=== PATIENT | male | born 1965 | race Caucasian/White ===

== ENCOUNTER → 2024-02-13 08:39 | Outpatient (CLI) | payer OTHER, SELFPAY ==
--- NOTE | 2024-02-13 | DI.US.S_ITS ---
PROCEDURE: US PARACENTESIS INDICATIONS: alcoholic cirrhosis of liver with ascites TECHNIQUE: The indications, alternatives, benefits, risks, and complications of the procedure were explained to the patient. Written informed consent was obtained and placed in the chart. The abdomen and pelvis were examined sonographically, and an appropriate site was chosen for paracentesis. The skin was prepared and draped in the usual sterile fashion, and 1% lidocaine was infiltrated from the skin down through the peritoneal surface. A 19-gauge catheter-covered needle was then introduced into the peritoneal space, the catheter was advanced and the needle was withdrawn, and thereafter peritoneal fluid was withdrawn. The catheter was then removed and a dressing was applied. The fluid was discarded if the clinician did not order diagnostic testing of the fluid. COMPARISON: None. FINDINGS: Access site: Left lower quadrant Needle: One-Step centesis catheter with introducer needle. Fluid volume and description: 5 L, clear straw-colored Fluid sent for diagnostic testing: None Medications: 1% lidocaine for local anaesthesia. Complications: None. IMPRESSION: Successful ultrasound-guided paracentesis. Dictated by: Bekah Morales M.D. on 02/13/2024 at 17:14 Approved by: Bekah Morales M.D. on 02/13/2024 at 17:15
[2024-02-13 10:15] LABS: Add Manual Diff / Slide Review NO; Basophils Absolute Auto 0 /uL (0-100); Basophils Percent Auto 0.5 % (0-2); Eosinophils Absolute Auto 0 /uL (0-450); Eosinophils Percent Auto 0.1 % (2-4); Hematocrit 36.6 % (41-53); Hemoglobin 12.4 g/dL (13.5-17.5); Lymphocytes Absolute Auto 1200 /uL (1100-4500); Lymphocytes Percent Auto 12.1 % (25-40); Mean Corpuscular HGB Conc 33.8 % (30-36); Mean Corpuscular Hemoglobin 33.3 PG (26-34); Mean Corpuscular Volume 98.7 fL (80-100); Monocytes Absolute Auto 1500 /uL (0-900); Monocytes Percent Auto 14.9 % (3-14); Neutrophils Absolute Auto 7100 /uL (1500-7000); Neutrophils Percent Auto 72.4 % (50-75); Platelet Count 252 X10^3/uL (150-400); Red Blood Cell Count 3.71 X10^6/uL (4.5-5.9); Red Cell Distribution Width 15.5 % (11.6-14.8); White Blood Cell Count 9.8 X10^3/uL (4.5-11.0)
[2024-02-13 10:46] LABS: INR 1.6 (0.9-1.3); Prothrombin Time 18.1 SECONDS (9.4-12.5)
[2024-02-13 10:47] LABS: Albumin 3.4 g/dL (3.5-5.0); Alkaline Phosphatase 262 U/L (38-126); Aspartate Aminotransferase 67 IU/L (17-59); BUN Creatinine Ratio 14.4 (6-22); Bilirubin Total 2.7 mg/dL (0.2-1.3); Blood Urea Nitrogen 13 mg/dL (9-20); Carbon Dioxide 24 mmol/L (22-32); Chloride 91 mmol/L (98-107); Estimated Glomerular Filt Rate > 60 mL/min (>60); Globulin 3.3 g/dL (1.7-4.1); Glucose 107 mg/dL (80-110); HEMOLYSIS < 15 (0-50); Sodium 127 mmol/L (137-145); Total Protein 6.7 g/dL (6.3-8.2)
[2024-02-13 10:55] LABS: Alanine Aminotransferase 28 IU/L (<50)
== END ==
PROVIDERS: Referring Provider Transplant Surgery; Visit Provider Transplant Surgery
DX: K70.31 Alcoholic cirrhosis of liver with ascites (principal); K72.90 Hepatic failure, unspecified without coma
CPT/HCPCS: 49083; 80053; 85025; 85610

== ENCOUNTER → 2024-02-27 08:48 | Outpatient (CLI) | payer OTHER, SELFPAY ==
--- NOTE | 2024-02-27 08:50 | DI.US.S_ITS ---
PROCEDURE: US PARACENTESIS INDICATIONS: Alcoholic cirrhosis of liver with ascites TECHNIQUE: The indications, alternatives, benefits, risks, and complications of the procedure were explained to the patient. Written informed consent was obtained and placed in the chart. The abdomen and pelvis were examined sonographically, and an appropriate site was chosen for paracentesis. The skin was prepared and draped in the usual sterile fashion, and 1% lidocaine was infiltrated from the skin down through the peritoneal surface. A 19-gauge catheter-covered needle was then introduced into the peritoneal space, the catheter was advanced and the needle was withdrawn, and thereafter peritoneal fluid was withdrawn. The catheter was then removed and a dressing was applied. The fluid was discarded if the clinician did not order diagnostic testing of the fluid. COMPARISON: [facility], , PARACENTESIS, 02/13/2024, 9:35. FINDINGS: Access site: Right lower quadrant Needle: One-Step centesis catheter with introducer needle. Fluid volume and description: 5000 cc. Straw-colored. Fluid sent for diagnostic testing: None. Medications: 1% lidocaine for local anaesthesia. Complications: None. IMPRESSION: Successful ultrasound-guided therapeutic paracentesis. 5 L removed. Dictated by: Amilcar Irene M.D. on 02/27/2024 at 15:27 Approved by: Amilcar Irene M.D. on 02/27/2024 at 15:28
== END ==
PROVIDERS: Referring Provider Transplant Surgery; Visit Provider Transplant Surgery
DX: K70.31 Alcoholic cirrhosis of liver with ascites (principal)
CPT/HCPCS: 49083

== ENCOUNTER → 2024-03-05 11:23 | Outpatient (CLI) | payer OTHER, SELFPAY ==
--- NOTE | 2024-03-05 11:26 | DI.US.S_ITS ---
PROCEDURE: US PARACENTESIS INDICATIONS: Alcoholic cirrhosis of liver with ascites TECHNIQUE: The indications, alternatives, benefits, risks, and complications of the procedure were explained to the patient. Written informed consent was obtained and placed in the chart. The abdomen and pelvis were examined sonographically, and an appropriate site was chosen for paracentesis. The skin was prepared and draped in the usual sterile fashion, and 1% lidocaine was infiltrated from the skin down through the peritoneal surface. A 19-gauge catheter-covered needle was then introduced into the peritoneal space, the catheter was advanced and the needle was withdrawn, and thereafter peritoneal fluid was withdrawn. The catheter was then removed and a dressing was applied. The fluid was discarded if the clinician did not order diagnostic testing of the fluid. COMPARISON: [facility], PARACENTESIS, 02/27/2024, 10:13. FINDINGS: Access site: Right lower quadrant. Needle: One-Step centesis catheter with introducer needle. Fluid volume and description: 5 L of clear yellowish fluid. Fluid sent for diagnostic testing: None Medications: 1% lidocaine for local anaesthesia. Complications: None. IMPRESSION: Successful ultrasound-guided paracentesis. Dictated by: Alberto Coyle M.D. on 03/05/2024 at 17:28 Approved by: Alberto Coyle M.D. on 03/05/2024 at 17:29
[2024-03-05 14:07] LABS: INR 1.6 (0.9-1.3); Prothrombin Time 18.3 SECONDS (9.4-12.5)
== END ==
LOC: US 11:24
PROVIDERS: PCP Transplant Surgery; Referring Provider Transplant Surgery; Visit Provider Transplant Surgery
DX: K70.31 Alcoholic cirrhosis of liver with ascites (principal); K72.90 Hepatic failure, unspecified without coma
CPT/HCPCS: 36415; 49083; 85610

== ENCOUNTER → 2024-03-12 09:37 | Outpatient (CLI) | payer OTHER, SELFPAY ==
--- NOTE | 2024-03-12 | DI.US.S_ITS ---
PROCEDURE: US PARACENTESIS INDICATIONS: Alcoholic cirrhosis of liver with ascites TECHNIQUE: The indications, alternatives, benefits, risks, and complications of the procedure were explained to the patient. Written informed consent was obtained and placed in the chart. The abdomen and pelvis were examined sonographically, and an appropriate site was chosen for paracentesis. The skin was prepared and draped in the usual sterile fashion, and 1% lidocaine was infiltrated from the skin down through the peritoneal surface. A 19-gauge catheter-covered needle was then introduced into the peritoneal space, the catheter was advanced and the needle was withdrawn, and thereafter peritoneal fluid was withdrawn. The catheter was then removed and a dressing was applied. The fluid was discarded if the clinician did not order diagnostic testing of the fluid. COMPARISON: [facility], , PARACENTESIS, 03/05/2024, 11:39. FINDINGS: Access site: Right lower quadrant Needle: One-Step centesis catheter with introducer needle. Fluid volume and description: Clear, straw-colored, 5000 cc Fluid sent for diagnostic testing: None Medications: 1% lidocaine for local anaesthesia. Complications: None. IMPRESSION: Successful ultrasound-guided paracentesis. Dictated by: Bekah Morales M.D. on 03/12/2024 at 11:33 Approved by: Bekah Morales M.D. on 03/12/2024 at 11:34
== END ==
LOC: US 09:38
PROVIDERS: PCP Transplant Surgery; Referring Provider Transplant Surgery; Visit Provider Transplant Surgery
DX: K70.31 Alcoholic cirrhosis of liver with ascites (principal)
CPT/HCPCS: 49083

== ENCOUNTER → 2024-03-19 09:24 | Outpatient (CLI) | payer OTHER, SELFPAY ==
--- NOTE | 2024-03-19 09:25 | DI.US.S_ITS ---
PROCEDURE: US PARACENTESIS INDICATIONS: Alcoholic cirrhosis of liver with ascites TECHNIQUE: The indications, alternatives, benefits, risks, and complications of the procedure were explained to the patient. Written informed consent was obtained and placed in the chart. The abdomen and pelvis were examined sonographically, and an appropriate site was chosen for paracentesis. The skin was prepared and draped in the usual sterile fashion, and 1% lidocaine was infiltrated from the skin down through the peritoneal surface. A 19-gauge catheter-covered needle was then introduced into the peritoneal space, the catheter was advanced and the needle was withdrawn, and thereafter peritoneal fluid was withdrawn. The catheter was then removed and a dressing was applied. The fluid was discarded if the clinician did not order diagnostic testing of the fluid. COMPARISON: [facility], , PARACENTESIS, 03/12/2024, 9:53. FINDINGS: Access site: Right lower quadrant Needle: One-Step centesis catheter with introducer needle. Fluid volume and description: 5L clear loraine ascites Fluid sent for diagnostic testing: none Medications: 1% lidocaine for local anaesthesia. Complications: None. IMPRESSION: Successful ultrasound-guided paracentesis. Dictated by: Amando Leung M.D. on 03/19/2024 at 20:21 Approved by: Amando Leung M.D. on 03/19/2024 at 20:23
== END ==
LOC: US 09:25
PROVIDERS: PCP Transplant Surgery; Referring Provider Transplant Surgery; Visit Provider Transplant Surgery
DX: K70.31 Alcoholic cirrhosis of liver with ascites (principal)
CPT/HCPCS: 49083

== ENCOUNTER → 2024-03-26 09:22 | Outpatient (CLI) | payer OTHER, SELFPAY ==
--- NOTE | 2024-03-26 09:23 | DI.US.S_ITS ---
PROCEDURE: US PARACENTESIS INDICATIONS: ASCITIES TECHNIQUE: The indications, alternatives, benefits, risks, and complications of the procedure were explained to the patient. Written informed consent was obtained and placed in the chart. The abdomen and pelvis were examined sonographically, and an appropriate site was chosen for paracentesis. The skin was prepared and draped in the usual sterile fashion, and 1% lidocaine was infiltrated from the skin down through the peritoneal surface. A 19-gauge catheter-covered needle was then introduced into the peritoneal space, the catheter was advanced and the needle was withdrawn, and thereafter peritoneal fluid was withdrawn. The catheter was then removed and a dressing was applied. The fluid was discarded if the clinician did not order diagnostic testing of the fluid. COMPARISON: [facility], PARACENTESIS, 03/19/2024, 10:15. FINDINGS: Access site: Right lower quadrant Needle: One-Step centesis catheter with introducer needle. Fluid volume and description: 5000 yellow Fluid sent for diagnostic testing: No Medications: 1% lidocaine for local anaesthesia. Complications: None. IMPRESSION: Successful ultrasound-guided paracentesis. Dictated by: Mary oLu Gonzalez M.D. on 03/26/2024 at 15:17 Approved by: Mary Lou Gonzalez M.D. on 03/26/2024 at 15:17
== END ==
PROVIDERS: PCP Transplant Surgery
DX: K70.31 Alcoholic cirrhosis of liver with ascites (principal)
CPT/HCPCS: 49083

== ENCOUNTER → 2024-04-02 | Outpatient (CLI) | payer OTHER, SELFPAY ==
--- NOTE | 2024-04-02 09:48 | DI.US.S_ITS ---
PROCEDURE: US PARACENTESIS INDICATIONS: Alcoholic cirrhosis of liver with ascites TECHNIQUE: The indications, alternatives, benefits, risks, and complications of the procedure were explained to the patient. Written informed consent was obtained and placed in the chart. The abdomen and pelvis were examined sonographically, and an appropriate site was chosen for paracentesis. The skin was prepared and draped in the usual sterile fashion, and 1% lidocaine was infiltrated from the skin down through the peritoneal surface. A 19-gauge catheter-covered needle was then introduced into the peritoneal space, the catheter was advanced and the needle was withdrawn, and thereafter peritoneal fluid was withdrawn. The catheter was then removed and a dressing was applied. The fluid was discarded if the clinician did not order diagnostic testing of the fluid. COMPARISON: [facility], , PARACENTESIS, 03/26/2024, 10:20. FINDINGS: Access site: Right lower quadrant Needle: One-Step centesis catheter with introducer needle. Fluid volume and description: 5 liters of yellow fluid Fluid sent for diagnostic testing: As requested by ordering team Medications: 1% lidocaine for local anaesthesia. Complications: None. IMPRESSION: Successful ultrasound-guided paracentesis. Dictated by: Shravan Salcedo M.D. on 04/16/2024 at 15:17 Approved by: Shravan Slacedo M.D. on 04/16/2024 at 15:18
== END ==
LOC: US 09:48
PROVIDERS: PCP Transplant Surgery; Referring Provider Transplant Surgery; Visit Provider Transplant Surgery
DX: K70.31 Alcoholic cirrhosis of liver with ascites (principal)
CPT/HCPCS: 49083

== ENCOUNTER → 2024-04-23 09:52 | Outpatient (CLI) | payer OTHER, SELFPAY ==
--- NOTE | 2024-04-23 09:53 | DI.US.S_ITS ---
PROCEDURE: US PARACENTESIS INDICATIONS: LARGE VOLUME THERAPEAUTIC PARACENTESIS W/ ALBUMIN TO FOLLOW TECHNIQUE: The indications, alternatives, benefits, risks, and complications of the procedure were explained to the patient. Written informed consent was obtained and placed in the chart. The abdomen and pelvis were examined sonographically, and an appropriate site was chosen for paracentesis. The skin was prepared and draped in the usual sterile fashion, and 1% lidocaine was infiltrated from the skin down through the peritoneal surface. A 19-gauge catheter-covered needle was then introduced into the peritoneal space, the catheter was advanced and the needle was withdrawn, and thereafter peritoneal fluid was withdrawn. The catheter was then removed and a dressing was applied. The fluid was discarded if the clinician did not order diagnostic testing of the fluid. COMPARISON: [facility], PARACENTESIS, 04/02/2024, 10:22. FINDINGS: Access site: Right lower quadrant Needle: One-Step centesis catheter with introducer needle. Fluid volume and description: 26699 cc of clear fluid was removed. Fluid sent for diagnostic testing: No Medications: 1% lidocaine for local anaesthesia. Complications: None. IMPRESSION: Successful ultrasound-guided paracentesis. Dictated by: Saad Peña M.D. on 04/25/2024 at 14:22 Approved by: Saad Peña M.D. on 04/25/2024 at 14:23
[2024-04-23 13:16] VITALS: BP 104/64; PULSE 55; RESP 14; O2SAT 97
== END ==
LOC: US 09:52
PROVIDERS: PCP Transplant Surgery; Referring Provider Transplant Surgery; Visit Provider Transplant Surgery
DX: K70.31 Alcoholic cirrhosis of liver with ascites (principal)
CPT/HCPCS: 49083; 96365; 96366; P9041

== ENCOUNTER → 2024-05-07 09:58 | Outpatient (CLI) | payer OTHER, SELFPAY ==
--- NOTE | 2024-05-07 09:59 | DI.US.S_ITS ---
PROCEDURE: US PARACENTESIS INDICATIONS: Alcoholic cirrhosis of liver with ascites TECHNIQUE: The indications, alternatives, benefits, risks, and complications of the procedure were explained to the patient. Written informed consent was obtained and placed in the chart. The abdomen and pelvis were examined sonographically, and an appropriate site was chosen for paracentesis. The skin was prepared and draped in the usual sterile fashion, and 1% lidocaine was infiltrated from the skin down through the peritoneal surface. A 19-gauge catheter-covered needle was then introduced into the peritoneal space, the catheter was advanced and the needle was withdrawn, and thereafter peritoneal fluid was withdrawn. The catheter was then removed and a dressing was applied. The fluid was discarded if the clinician did not order diagnostic testing of the fluid. COMPARISON: [facility], , PARACENTESIS, 04/30/2024, 10:26. FINDINGS: Access site: Right lower quadrant Needle: One-Step centesis catheter with introducer needle. Fluid volume and description: 60449 cc, cloudy yellow fluid Fluid sent for diagnostic testing: No Medications: 1% lidocaine for local anaesthesia. Complications: None. IMPRESSION: Successful ultrasound-guided paracentesis. Dictated by: Saad Peña M.D. on 05/07/2024 at 15:17 Approved by: Saad Peña M.D. on 05/07/2024 at 15:18
== END ==
LOC: US 09:59
PROVIDERS: PCP Transplant Surgery; Referring Provider Transplant Surgery; Visit Provider Transplant Surgery
DX: K70.31 Alcoholic cirrhosis of liver with ascites (principal)
CPT/HCPCS: 49083

== ENCOUNTER → 2024-05-21 09:39 | Outpatient (CLI) | payer OTHER, SELFPAY ==
--- NOTE | 2024-05-21 09:40 | DI.US.S_ITS ---
PROCEDURE: US PARACENTESIS INDICATIONS: Alcoholic cirrhosis of liver with ascites TECHNIQUE: The indications, alternatives, benefits, risks, and complications of the procedure were explained to the patient. Written informed consent was obtained and placed in the chart. The abdomen and pelvis were examined sonographically, and an appropriate site was chosen for paracentesis. The skin was prepared and draped in the usual sterile fashion, and 1% lidocaine was infiltrated from the skin down through the peritoneal surface. A 19-gauge catheter-covered needle was then introduced into the peritoneal space, the catheter was advanced and the needle was withdrawn, and thereafter peritoneal fluid was withdrawn. The catheter was then removed and a dressing was applied. The fluid was discarded if the clinician did not order diagnostic testing of the fluid. COMPARISON: [facility], PARACENTESIS, 05/14/2024, 10:42. FINDINGS: Access site: Right lower quadrant Needle: One-Step centesis catheter with introducer needle. Fluid volume and description: 12.5 L of clear, loraine ascites Fluid sent for diagnostic testing: Therapeutic thoracentesis. No specimen sent for analysis. Medications: 1% lidocaine for local anaesthesia. Complications: None. IMPRESSION: Successful ultrasound-guided paracentesis. Dictated by: Amando Leung M.D. on 05/21/2024 at 17:09 Approved by: Amando Leung M.D. on 05/21/2024 at 17:09
== END ==
PROVIDERS: PCP Physician Assistant Medical; Referring Provider Transplant Surgery; Visit Provider Transplant Surgery
DX: K70.31 Alcoholic cirrhosis of liver with ascites (principal)
CPT/HCPCS: 49083

== ENCOUNTER 2024-05-28 10:01 | Emergency (ER) | payer OTHER, SELFPAY ==
[2024-05-28] VITALS (40 sets, daily range): BP systolic 97–140; BP diastolic 53–67; PULSE 84–104; RESP 13–34; TEMP 36.6–37.3; O2SAT 94–100; BMI 24.0
--- NOTE | 2024-05-28 10:12 | DI.US.S_ITS ---
PROCEDURE: US PARACENTESIS INDICATIONS: RECURRENT ASCITES - THERAPEUTRIC TECHNIQUE: The indications, alternatives, benefits, risks, and complications of the procedure were explained to the patient. Written informed consent was obtained and placed in the chart. The abdomen and pelvis were examined sonographically, and an appropriate site was chosen for paracentesis. The skin was prepared and draped in the usual sterile fashion, and 1% lidocaine was infiltrated from the skin down through the peritoneal surface. A 19-gauge catheter-covered needle was then introduced into the peritoneal space, the catheter was advanced and the needle was withdrawn, and thereafter peritoneal fluid was withdrawn. The catheter was then removed and a dressing was applied. The fluid was discarded if the clinician did not order diagnostic testing of the fluid. COMPARISON: [facility], , PARACENTESIS, 05/21/2024, 10:17. FINDINGS: Access site: Right lower quadrant Needle: One-Step centesis catheter with introducer needle. Fluid volume and description: 9.6 L Fluid sent for diagnostic testing: Yes Medications: 1% lidocaine for local anaesthesia. Complications: None. IMPRESSION: Successful ultrasound-guided paracentesis. Dictated by: Jorge Vega M.D. on 05/28/2024 at 13:38 Approved by: Jorge Vega M.D. on 05/28/2024 at 13:40
--- NOTE | 2024-05-28 10:14 | ED.RECABL ---
HPI - Recheck/Abnormal Lab/Rx <Stewart Garcias MD - Last Filed: 05/29/24 07:32> General Chief Complaint: Recheck/Abnormal Lab/Rx Stated Complaint: needs a parenthesis Time Seen by Provider: 05/28/24 10:10 Source: patient Mode of arrival: Ambulatory History of Present Illness HPI narrative: 59-year-old male with history of cirrhosis and recurrent ascites, last large volume therapeutic paracentesis last week was 12 L with follow up albumin infusion, reports that he last drank alcohol July 2023, awaiting consultation with hepatology/transplant services at [facility], reports he had been pursuing possible transplantation in [facility], but has subsequently moved to [facility], currently residing [facility], establish care at [facility]. He is taking Lasix and Aldactone diuretics, denies missed doses. He unfortunately did not have procedure scheduled today, though anticipates weekly Sunday therapeutic paracentesis procedures. He is here for coordination of paracentesis and albumin infusion postprocedure. He denies fevers or chills. He has abdominal distention but otherwise no significant abdominal discomfort. Denies shortness of breath. Has chronic lower extremity edema that seems unchanged. Denies recent chest pain. Related Data Home Medications Medication Instructions Recorded Confirmed furosemide 40 mg tablet (Lasix) 40 mg PO DAILY Liver/Fliids 05/16/24 05/28/24 hydrocortisone 2.5 % rectal cream 2.5 ea SD DAILY PRN 05/16/24 05/16/24 with applicator metoprolol succinate 25 mg 25 mg PO DAILY 05/16/24 05/28/24 tablet,extended release 24 hr pantoprazole 40 mg tablet,delayed 40 mg PO DAILY 05/16/24 05/16/24 release spironolactone 25 mg tablet 25 mg PO BID 05/16/24 05/28/24 zinc sulfate 50 mg zinc (220 mg) 50 mg PO DAILY 05/16/24 05/16/24 capsule Allergies Allergy/AdvReac Type Severity Reaction Status Date / Time No Known Drug Allergies Allergy Verified 05/28/24 10:08 Review of Systems <Stewart Garcias MD - Last Filed: 05/29/24 07:32> Review of Systems Narrative: see HPI Patient History <Stewart Garcias MD - Last Filed: 05/29/24 07:32> Medical History Sleep apnea (~2018) Mumps Measles Chicken pox Liver disease (~2022) Cirrhosis (~2022) Hypertension (~1999) Surgical History Anesthesia History of surgery Family History Father History of heart disease Social History Smoking Status: Never smoker Smoking Status: Never smoker alcohol intake frequency: other Substance Use Type: does not use Exam <Stewart Garcias MD - Last Filed: 05/29/24 07:32> Narrative Exam Narrative: GENERAL: Well-developed patient, in mild distress. HEAD: Atraumatic. Normocephalic. EYES: Pupils equal round and reactive. Extraocular motions intact. No scleral icterus. No injection or drainage. ENT: Nose without bleeding, purulent drainage. Throat without erythema, tonsillar hypertrophy or exudate. Airway patent. NECK: Trachea midline. Non tender CARDIOVASCULAR: Regular rate and rhythm without murmurs, gallops, or rubs. RESPIRATORY: Clear to auscultation. Breath sounds equal bilaterally. No wheezes, rales, or rhonchi. GASTROINTESTINAL: Abdomen distended, central tympany, consistent with ascites fluid, known reaccumulation. No significant tenderness, no guarding or rebound. EXTREMITIES: Bilateral lower extremity edema, to ankles bilaterally. Numa toes well perfused. BACK: Nontender without deformity or crepitance. No flank tenderness. NEURO: AOx3. Alert, clear speech, nonfocal gross motor exam SKIN: No rash or erythema of visible areas Initial Vital Signs Initial Vital Signs: Vital Signs Temperature 98 F 05/28/24 10:05 Pulse Rate 104 H 05/28/24 10:05 Respiratory Rate 05/28/24 10:05 Blood Pressure 140/67 05/28/24 10:05 Pulse Oximetry 100 05/28/24 10:05 Oxygen Delivery Method Room Air 05/28/24 10:05 <Karen Lugo MD - Last Filed: 05/29/24 01:42> Initial Vital Signs Initial Vital Signs: Vital Signs Temperature 98 F 05/28/24 10:05 Pulse Rate 104 H 05/28/24 10:05 Respiratory Rate 17 05/28/24 10:05 Blood Pressure 140/67 05/28/24 10:05 Pulse Oximetry 100 05/28/24 10:05 Oxygen Delivery Method Room Air 05/28/24 10:05 Course <Stewart Garcias MD - Last Filed: 05/29/24 07:32> Orders Ordered: Discontinued Medications Furosemide (Furosemide 40 Mg Tablet) 40 mg PO DAILY [facility] Last Admin: 05/28/24 16:06 Dose: 40 mg Documented By: LILLIAN Albumin Human (Albuminar) 25 gm in 100 mls @ 60 mls/hr IV NOW ONE Stop: 05/28/24 11:59 Last Infusion: 05/28/24 13:45 Dose: Infused Documented By: Admin: 05/28/24 12:05 Dose: 60 mls/hr Documented By: TRI Albumin Human (Albuminar) 25 gm in 100 mls @ 60 mls/hr IV NOW ONE Stop: 05/28/24 14:35 Last Infusion: 05/28/24 15:33 Dose: Infused Documented By: Admin: 05/28/24 13:38 Dose: 60 mls/hr Documented By: LILLIAN Ceftriaxone Sodium 1,000 mg/ (Sodium Chloride) 100 mls @ 200 mls/hr IV NOW ONE Stop: 05/28/24 16:16 Last Infusion: 05/28/24 16:58 Dose: Infused Documented By: Admin: 05/28/24 16:23 Dose: 200 mls/hr Documented By: TRI Metoprolol Succinate (Metoprolol Er 25 Mg Tablet) 25 mg PO DAILY [facility] Vital Signs Vital signs: Vital Signs - 8 hr 05/28/24 17:45 05/28/24 17:45 05/28/24 18:00 Temperature Pulse Rate 99 H Respiratory Rate 19 Blood Pressure 107/57 L 109/58 L Pulse Oximetry 96 Oxygen Delivery Method 05/28/24 18:00 05/28/24 18:15 05/28/24 18:15 Temperature Pulse Rate 98 H 92 H Respiratory Rate 17 17 Blood Pressure 97/53 L Pulse Oximetry 96 100 Oxygen Delivery Method Room Air 05/28/24 18:30 05/28/24 18:30 05/28/24 18:45 Temperature Pulse Rate 85 84 Respiratory Rate 25 H 14 Blood Pressure 106/54 L Pulse Oximetry 99 99 Oxygen Delivery Method 05/28/24 18:45 05/28/24 19:00 05/28/24 19:00 Temperature Pulse Rate 102 H Respiratory Rate 34 H Blood Pressure 116/59 L 107/57 L Pulse Oximetry 98 Oxygen Delivery Method 05/28/24 19:15 05/28/24 19:15 05/28/24 19:15 Temperature Pulse Rate 84 Respiratory Rate 13 Blood Pressure 118/62 118/62 Pulse Oximetry 99 Oxygen Delivery Method 05/28/24 19:30 05/28/24 19:30 05/28/24 19:45 Temperature Pulse Rate 86 Respiratory Rate 14 Blood Pressure 109/58 L 108/61 Pulse Oximetry 98 Oxygen Delivery Method 05/28/24 19:45 05/28/24 20:00 05/28/24 20:00 Temperature Pulse Rate 92 H 90 Respiratory Rate 16 18 Blood Pressure 108/58 L Pulse Oximetry 100 98 Oxygen Delivery Method 05/28/24 20:15 05/28/24 20:15 05/28/24 20:30 Temperature Pulse Rate 92 H 89 Respiratory Rate 16 15 Blood Pressure 108/61 Pulse Oximetry 99 99 Oxygen Delivery Method 05/28/24 20:30 Temperature 99.2 F Pulse Rate Respiratory Rate Blood Pressure 107/58 L Pulse Oximetry Oxygen Delivery Method <Karen Lugo MD - Last Filed: 05/29/24 01:42> Orders Ordered: Discontinued Medications Furosemide (Furosemide 40 Mg Tablet) 40 mg PO DAILY [facility] Last Admin: 05/28/24 16:06 Dose: 40 mg Documented By: LILLIAN Albumin Human (Albuminar) 25 gm in 100 mls @ 60 mls/hr IV NOW ONE Stop: 05/28/24 11:59 Last Infusion: 05/28/24 13:45 Dose: Infused Documented By: Admin: 05/28/24 12:05 Dose: 60 mls/hr Documented By: TRI Albumin Human (Albuminar) 25 gm in 100 mls @ 60 mls/hr IV NOW ONE Stop: 05/28/24 14:35 Last Infusion: 05/28/24 15:33 Dose: Infused Documented By: Admin: 05/28/24 13:38 Dose: 60 mls/hr Documented By: LILLIAN Ceftriaxone Sodium 1,000 mg/ (Sodium Chloride) 100 mls @ 200 mls/hr IV NOW ONE Stop: 05/28/24 16:16 Last Infusion: 05/28/24 16:58 Dose: Infused Documented By: Admin: 05/28/24 16:23 Dose: 200 mls/hr Documented By: TRI Metoprolol Succinate (Metoprolol Er 25 Mg Tablet) 25 mg PO DAILY [facility] Vital Signs Vital signs: Vital Signs - 8 hr 05/28/24 17:45 05/28/24 17:45 05/28/24 18:00 Temperature Pulse Rate 99 H Respiratory Rate 19 Blood Pressure 107/57 L 109/58 L Pulse Oximetry 96 Oxygen Delivery Method 05/28/24 18:00 05/28/24 18:15 05/28/24 18:15 Temperature Pulse Rate 98 H 92 H Respiratory Rate 17 17 Blood Pressure 97/53 L Pulse Oximetry 96 100 Oxygen Delivery Method Room Air 05/28/24 18:30 05/28/24 18:30 05/28/24 18:45 Temperature Pulse Rate 85 84 Respiratory Rate 25 H 14 Blood Pressure 106/54 L Pulse Oximetry 99 99 Oxygen Delivery Method 05/28/24 18:45 05/28/24 19:00 05/28/24 19:00 Temperature Pulse Rate 102 H Respiratory Rate 34 H Blood Pressure 116/59 L 107/57 L Pulse Oximetry 98 Oxygen Delivery Method 05/28/24 19:15 05/28/24 19:15 05/28/24 19:15 Temperature Pulse Rate 84 Respiratory Rate 13 Blood Pressure 118/62 118/62 Pulse Oximetry 99 Oxygen Delivery Method 05/28/24 19:30 05/28/24 19:30 05/28/24 19:45 Temperature Pulse Rate 86 Respiratory Rate 14 Blood Pressure 109/58 L 108/61 Pulse Oximetry 98 Oxygen Delivery Method 05/28/24 19:45 05/28/24 20:00 05/28/24 20:00 Temperature Pulse Rate 92 H 90 Respiratory Rate 16 18 Blood Pressure 108/58 L Pulse Oximetry 100 98 Oxygen Delivery Method 05/28/24 20:15 05/28/24 20:15 05/28/24 20:30 Temperature Pulse Rate 92 H 89 Respiratory Rate 16 15 Blood Pressure 108/61 Pulse Oximetry 99 99 Oxygen Delivery Method 05/28/24 20:30 Temperature 99.2 F Pulse Rate Respiratory Rate Blood Pressure 107/58 L Pulse Oximetry Oxygen Delivery Method MDM - Recheck/Abnormal Lab/Rx <Stewart Garcias MD - Last Filed: 05/29/24 07:32> Lab Data Attestation: I reviewed the patient's lab results. 05/28/24 14:20 05/28/24 18:56 Labs: Lab Results 05/28/24 05/28/24 05/28/24 Range/Units 10:42 11:50 12:01 WBC 25.0 H (4.5-11.0) X10^3/uL RBC 3.22 L (4.5-5.9) X10^6/uL Hgb 10.2 L (13.5-17.5) g/dL Hct 30.1 L (41-53) % MCV 93.3 (80-100) fL MCH 31.6 (26-34) PG MCHC 33.8 (30-36) % RDW 16.0 H (11.6-14.8) % Plt Count 319 (150-400) X10^3/uL Neut % (Auto) 85.6 H (50-75) % Lymph % (Auto) 1.8 L (25-40) % Villalba % (Auto) 11.4 (3-14) % Eos % (Auto) 0.1 L (2-4) % Baso % (Auto) 1.1 (0-2) % Neut # (Auto) 99714 H (1497-8879) /uL Lymph # (Auto) 400 L (3818-7419) /uL [place] # (Auto) 2900 H (0-900) /uL Eos # (Auto) 0 (0-450) /uL Baso # (Auto) 300 H (0-100) /uL Total Counted Seg Neutrophils % (38-70) % Band Neutrophils % (3-7) % Lymphocytes % (Manual) (25-45) % Atypical Lymphs % ( - 0) % Monocytes % (Manual) (2-11) % Basophils % (Manual) (0-1) % Neutrophils # (Manual) (7483-6444) /uL RBC Morphology PT 19.3 H (9.4-12.5) SECONDS INR 1.7 H (0.9-1.3) Sodium 121 L (137-145) mmol/L Potassium 4.9 (3.4-5.1) mmol/L Chloride 90 L (98-107) mmol/L Carbon Dioxide 25 (22-32) mmol/L BUN 28 H (9-20) mg/dL Creatinine 0.96 (0.66-1.25) mg/dL Estimated GFR > 60 (>60) mL/min BUN/Creatinine Ratio 29.2 H (6-22) Glucose 79 L (80-110) mg/dL Lactate 2.3 H 1.8 (0.7-2.1) mmol/L Calcium 8.9 (8.4-10.2) mg/dL Total Bilirubin 1.6 H (0.2-1.3) mg/dL AST 69 H (17-59) IU/L ALT 30 (<50) IU/L Alkaline Phosphatase 197 H (38-126) U/L Total Protein 5.9 L (6.3-8.2) g/dL Albumin 2.9 L (3.5-5.0) g/dL Globulin 3.0 (1.7-4.1) g/dL Albumin/Globulin Ratio 1.0 (1.0-2.8) Urine Color Urine Appearance Urine pH (4.5-8.0) Ur Specific [place] (1.000-1.035) Urine Protein (Negative) Urine Glucose (UA) (Negative) g/dL Urine Ketones (NEGATIVE) Urine Occult Blood (Negative) Urine Nitrate (Negative) Urine Bilirubin (NEGATIVE) Urine Urobilinogen (0.2) E.U./dL Ur Leukocyte Esterase (NEGATIVE) Urine RBC (0-5/HPF) Urine WBC (0-5/HPF) Ur Squamous Epith Cells (0-5/HPF) Urine Bacteria (None) Ur Culture Indicated? Vol Urine Centrifuged Ur Random Sodium (30-90) mmol/L Fluid Color Yellow Fluid Appearance Slightly cloudy Fluid RBC 822 /uL Fld Tot Nucleated Cell 280 /uL Fluid Neutrophils % 0 % Fluid Lymphocytes % 100 % Body Fluid Clot No clots present 05/28/24 05/28/24 05/28/24 Range/Units 13:58 14:20 15:05 WBC 30.5 H* (4.5-11.0) X10^3/uL RBC 2.71 L (4.5-5.9) X10^6/uL Hgb 8.7 L (13.5-17.5) g/dL Hct 25.3 L (41-53) % MCV 93.3 (80-100) fL MCH 32.2 (26-34) PG MCHC 34.5 (30-36) % RDW 16.4 H (11.6-14.8) % Plt Count 252 (150-400) X10^3/uL Neut % (Auto) Not Reportable (50-75) % Lymph % (Auto) Not Reportable (25-40) % Villalba % (Auto) Not Reportable (3-14) % Eos % (Auto) Not Reportable (2-4) % Baso % (Auto) Not Reportable (0-2) % Neut # (Auto) (8787-5631) /uL Lymph # (Auto) Not Reportable (4874-8800) /uL [place] # (Auto) Not Reportable (0-900) /uL Eos # (Auto) (0-450) /uL Baso # (Auto) Not Reportable (0-100) /uL Total Counted 100 Seg Neutrophils % 82.0 H (38-70) % Band Neutrophils % 8.0 H (3-7) % Lymphocytes % (Manual) 2.0 L (25-45) % Atypical Lymphs % 3.0 H ( - 0) % Monocytes % (Manual) 4.0 (2-11) % Basophils % (Manual) 1.0 (0-1) % Neutrophils # (Manual) 50849 H (2075-7412) /uL RBC Morphology Normal morphology PT (9.4-12.5) SECONDS INR (0.9-1.3) Sodium 118 L* (137-145) mmol/L Potassium 4.8 (3.4-5.1) mmol/L Chloride 91 L (98-107) mmol/L Carbon Dioxide 22 (22-32) mmol/L BUN 27 H (9-20) mg/dL Creatinine 0.86 (0.66-1.25) mg/dL Estimated GFR > 60 (>60) mL/min BUN/Creatinine Ratio 31.4 H (6-22) Glucose 89 (80-110) mg/dL Lactate (0.7-2.1) mmol/L Calcium 8.7 (8.4-10.2) mg/dL Total Bilirubin (0.2-1.3) mg/dL AST (17-59) IU/L ALT (<50) IU/L Alkaline Phosphatase (38-126) U/L Total Protein (6.3-8.2) g/dL Albumin (3.5-5.0) g/dL Globulin (1.7-4.1) g/dL Albumin/Globulin Ratio (1.0-2.8) Urine Color Yellow Urine Appearance Clear Urine pH 5.0 (4.5-8.0) Ur Specific [place] 1.010 (1.000-1.035) Urine Protein Negative (Negative) Urine Glucose (UA) Negative (Negative) g/dL Urine Ketones Negative (NEGATIVE) Urine Occult Blood Negative (Negative) Urine Nitrate Negative (Negative) Urine Bilirubin Negative (NEGATIVE) Urine Urobilinogen 0.2 (0.2) E.U./dL Ur Leukocyte Esterase Negative (NEGATIVE) Urine RBC None seen (0-5/HPF) Urine WBC 0-1/hpf (0-5/HPF) Ur Squamous Epith Cells 0-1 /hpf (0-5/HPF) Urine Bacteria None seen (None) Ur Culture Indicated? Cult not indicated Vol Urine Centrifuged 10ml (spun) Ur Random Sodium < 5 L (30-90) mmol/L Fluid Color Fluid Appearance Fluid RBC /uL Fld Tot Nucleated Cell /uL Fluid Neutrophils % % Fluid Lymphocytes % % Body Fluid Clot 05/28/24 Range/Units 18:56 WBC (4.5-11.0) X10^3/uL RBC (4.5-5.9) X10^6/uL Hgb (13.5-17.5) g/dL Hct (41-53) % MCV (80-100) fL MCH (26-34) PG MCHC (30-36) % RDW (11.6-14.8) % Plt Count (150-400) X10^3/uL Neut % (Auto) (50-75) % Lymph % (Auto) (25-40) % Vill[place] % (Auto) (3-14) % Eos % (Auto) (2-4) % Baso % (Auto) (0-2) % Neut # (Auto) (8599-3505) /uL Lymph # (Auto) (0873-7827) /uL [place] # (Auto) (0-900) /uL Eos # (Auto) (0-450) /uL Baso # (Auto) (0-100) /uL Total Counted Seg Neutrophils % (38-70) % Band Neutrophils % (3-7) % Lymphocytes % (Manual) (25-45) % Atypical Lymphs % ( - 0) % Monocytes % (Manual) (2-11) % Basophils % (Manual) (0-1) % Neutrophils # (Manual) (0975-8106) /uL RBC Morphology PT (9.4-12.5) SECONDS INR (0.9-1.3) Sodium 122 L (137-145) mmol/L Potassium 4.5 (3.4-5.1) mmol/L Chloride 92 L (98-107) mmol/L Carbon Dioxide 24 (22-32) mmol/L BUN 25 H (9-20) mg/dL Creatinine 1.04 (0.66-1.25) mg/dL Estimated GFR > 60 (>60) mL/min BUN/Creatinine Ratio 24.0 H (6-22) Glucose 130 H (80-110) mg/dL Lactate (0.7-2.1) mmol/L Calcium 8.6 (8.4-10.2) mg/dL Total Bilirubin 1.9 H (0.2-1.3) mg/dL AST 50 (17-59) IU/L ALT 24 (<50) IU/L Alkaline Phosphatase 124 D (38-126) U/L Total Protein 5.2 L (6.3-8.2) g/dL Albumin 2.9 L (3.5-5.0) g/dL Globulin 2.3 (1.7-4.1) g/dL Albumin/Globulin Ratio 1.3 (1.0-2.8) Urine Color Urine Appearance Urine pH (4.5-8.0) Ur Specific [place] (1.000-1.035) Urine Protein (Negative) Urine Glucose (UA) (Negative) g/dL Urine Ketones (NEGATIVE) Urine Occult Blood (Negative) Urine Nitrate (Negative) Urine Bilirubin (NEGATIVE) Urine Urobilinogen (0.2) E.U./dL Ur Leukocyte Esterase (NEGATIVE) Urine RBC (0-5/HPF) Urine WBC (0-5/HPF) Ur Squamous Epith Cells (0-5/HPF) Urine Bacteria (None) Ur Culture Indicated? Vol Urine Centrifuged Ur Random Sodium (30-90) mmol/L Fluid Color Fluid Appearance Fluid RBC /uL Fld Tot Nucleated Cell /uL Fluid Neutrophils % % Fluid Lymphocytes % % Body Fluid Clot Urine Dip Bedside Urine Glucose Negative Bedside Urine Bilirubin - Negative Bedside Urine Ketone - Negative Urine Specific [place] 1.015 Bedside Urine Occult Blood - Negative Bedside Urine pH 6.0 Bedside Urine Protein - Negative Bedside Urine Urobilinogen - Negative Bedside Urine Nitrite - Negative Bedside Urine Leukocytes - Negative Esterase Imaging Data CT scan - abdomen/pelvis: Radiologist's Impression: [address] [address] [address] Scan Report Signed Patient: Sampson Melissa MR#: [id number] : 1965 Acct:[id number] Age/Sex: 59 / M Date of Service: 05/28/24 Loc: ED Accession Number: [id number] Procedure: CT chest abd pel w con Ordering Provider: Stewart Garcias MD PROCEDURE: CT CHEST ABD PEL W CON INDICATIONS: WBC 25k unclear cause TECHNIQUE: After the administration of intravenous contrast, 5 mm thick sections acquired from the lung apices to the symphysis. 5 mm coronal and sagittal reformats were performed, with additional 7 mm MIP reformats through the lungs. For radiation dose reduction, the following was used: automated exposure control, adjustment of mA and/or kV according to patient size. COMPARISON: None. FINDINGS: Image quality: Mildly suboptimal due to motion artifact. CHEST: Lower Neck: No enlarged lymph nodes. Thyroid: No thyroid nodules which require sonographic follow up, per consensus guidelines. Axillae: No enlarged lymph nodes. Chest Wall: Gynecomastia. Lungs and Pleura: No pneumothorax or pleural effusions. Atelectasis in the left lower lobe. No suspicious nodule, accounting for motion artifact Heart: Heart size is enlarged. No pericardial effusion. Three-vessel coronary calcifications, marked for age. Thoracic Vessels: The aorta and pulmonary arteries demonstrate normal size. Mediastinum and Cindi: No enlarged lymph nodes. Esophagus: No wall thickening. No hiatal hernia. ABDOMEN: Liver: Cirrhosis. Single phase contrast evaluation is suboptimal for detection of hepatocellular carcinoma. No large mass identified. Patent portal vein. Gallbladder: No radiopaque gallstones or wall thickening. Biliary ducts: No biliary dilation. Pancreas: No ductal dilation. Spleen: Size is within normal limits. Adrenal Glands: No adrenal nodules. Kidneys and Ureters: No hydronephrosis. No solid mass. No complex renal cystic lesion which requires follow up. Stomach and Bowel: Normal colonic caliber, without significant wall thickening. Peritoneum: Moderate volume ascites. Mild peritoneal thickening. Ventral Wall: Small umbilical hernia containing fat and fluid. Abdominal Nodes: No retroperitoneal or mesenteric adenopathy by size criteria. Vessels: Aorta and inferior vena cava are normal in size. Portosystemic collaterals. PELVIS: Pelvic Organs: Unremarkable. Bladder: No bladder wall thickening, accounting for underdistention. Pelvic Nodes: No enlarged lymph nodes. Miscellaneous: No inguinal hernias are seen. Bones: No aggressive osseous abnormality. IMPRESSION: Moderate volume ascites with mild peritoneal thickening. Findings may indicate spontaneous bacterial peritonitis in the correct clinical setting. Cirrhosis. Single phase contrast evaluation is suboptimal for detection of hepatocellular carcinoma. No large mass identified. Patent portal vein. Dictated by: Jose Sauceda M.D. on 05/28/2024 at 13:43 Approved by: Jose Sauceda M.D. on 05/28/2024 at 13:49 MDM Narrative Medical decision making narrative: 59-year-old male with history of cirrhosis, last drink July 2023, recurrent ascites, large volume tap last Sunday, did not have order for outpatient tap today, no fevers, labs sent, ultrasound-guided therapeutic paracentesis ordered. Post paracentesis IV albumin ordered. Labs pending. White blood cell count 43081, no fever, add lactate. Sodium 121 noted. We will add paracentesis studies cell count, culture, albumin. Patient had 11 L therapeutic tap, we will give 50 g albumin (25 g x 2 infusions). Paracentesis fluid shows white blood cell count 280 with 0% neutrophils, not consistent with SBP. Paracentesis fluid culture had been requested. CT abdomen and pelvis imaging, chest x-ray imaging pending. CT abdomen pelvis shows moderate ascites, some perineal thickening consider subacute peritonitis. Cirrhosis changes again mentioned. No acute other changes mentioned. See radiology report. Hyponatremia 121 noted, leukocytosis serum unclear etiology, consider discussion with hospitalist regarding admission. Second IV 25 g albumin infusion still in process. Urine dip negative. Patient amenable 1400, case discussed with hospitalist Dr. Florentino, we will repeat sodium, we will repeat CBC, he is reviewing chart. Repeat white blood cell count [id number], repeat sodium 118, results relayed to hospitalist Dr Florentino White blood cell count increasing, blood culture sent prior, urinalysis negative, CT without acute changes obvious. IV ceftriaxone 1600, hospitalist here Dr Florentino believes patient requires higher level of care with Nephrology Services, not available here, see his consult note. Hospitalist was apparently able to review through [employer] system prior hospitalization [place] recently, sodium was low, GI and nephrology services were consulted with albumin boluses, fluid restriction, found at that time to have C diff colitis which which was treated with oral vancomycin. Hospitalist here believes patient needs nephrology consultation not available here. Patient amenable to consultation, we will seek consultation with Nephrology capable facility. 1700, still no prospects for transfer per [facility] query thus far. 1830, still no processed for transfer, [facility] query in progress. Signed out to Dr Lugo <Karen Lugo MD - Last Filed: 05/29/24 01:42> Lab Data Labs: Lab Results 05/28/24 05/28/24 05/28/24 Range/Units 10:42 11:50 12:01 WBC 25.0 H (4.5-11.0) X10^3/uL RBC 3.22 L (4.5-5.9) X10^6/uL Hgb 10.2 L (13.5-17.5) g/dL Hct 30.1 L (41-53) % MCV 93.3 (80-100) fL MCH 31.6 (26-34) PG MCHC 33.8 (30-36) % RDW 16.0 H (11.6-14.8) % Plt Count 319 (150-400) X10^3/uL Neut % (Auto) 85.6 H (50-75) % Lymph % (Auto) 1.8 L (25-40) % [place] % (Auto) 11.4 (3-14) % Eos % (Auto) 0.1 L (2-4) % Baso % (Auto) 1.1 (0-2) % Neut # (Auto) 78319 H (1857-0497) /uL Lymph # (Auto) 400 L (9115-1438) /uL [place] # (Auto) 2900 H (0-900) /uL Eos # (Auto) 0 (0-450) /uL Baso # (Auto) 300 H (0-100) /uL Total Counted Seg Neutrophils % (38-70) % Band Neutrophils % (3-7) % Lymphocytes % (Manual) (25-45) % Atypical Lymphs % ( - 0) % Monocytes % (Manual) (2-11) % Basophils % (Manual) (0-1) % Neutrophils # (Manual) (1585-5446) /uL RBC Morphology PT 19.3 H (9.4-12.5) SECONDS INR 1.7 H (0.9-1.3) Sodium 121 L (137-145) mmol/L Potassium 4.9 (3.4-5.1) mmol/L Chloride 90 L (98-107) mmol/L Carbon Dioxide 25 (22-32) mmol/L BUN 28 H (9-20) mg/dL Creatinine 0.96 (0.66-1.25) mg/dL Estimated GFR > 60 (>60) mL/min BUN/Creatinine Ratio 29.2 H (6-22) Glucose 79 L (80-110) mg/dL Lactate 2.3 H 1.8 (0.7-2.1) mmol/L Calcium 8.9 (8.4-10.2) mg/dL Total Bilirubin 1.6 H (0.2-1.3) mg/dL AST 69 H (17-59) IU/L ALT 30 (<50) IU/L Alkaline Phosphatase 197 H (38-126) U/L Total Protein 5.9 L (6.3-8.2) g/dL Albumin 2.9 L (3.5-5.0) g/dL Globulin 3.0 (1.7-4.1) g/dL Albumin/Globulin Ratio 1.0 (1.0-2.8) Urine Color Urine Appearance Urine pH (4.5-8.0) Ur Specific [place] (1.000-1.035) Urine Protein (Negative) Urine Glucose (UA) (Negative) g/dL Urine Ketones (NEGATIVE) Urine Occult Blood (Negative) Urine Nitrate (Negative) Urine Bilirubin (NEGATIVE) Urine Urobilinogen (0.2) E.U./dL Ur Leukocyte Esterase (NEGATIVE) Urine RBC (0-5/HPF) Urine WBC (0-5/HPF) Ur Squamous Epith Cells (0-5/HPF) Urine Bacteria (None) Ur Culture Indicated? Vol Urine Centrifuged Ur Random Sodium (30-90) mmol/L Fluid Color Yellow Fluid Appearance Slightly cloudy Fluid RBC 822 /uL Fld Tot Nucleated Cell 280 /uL Fluid Neutrophils % 0 % Fluid Lymphocytes % 100 % Body Fluid Clot No clots present 05/28/24 05/28/24 05/28/24 Range/Units 13:58 14:20 15:05 WBC 30.5 H* (4.5-11.0) X10^3/uL RBC 2.71 L (4.5-5.9) X10^6/uL Hgb 8.7 L (13.5-17.5) g/dL Hct 25.3 L (41-53) % MCV 93.3 (80-100) fL MCH 32.2 (26-34) PG MCHC 34.5 (30-36) % RDW 16.4 H (11.6-14.8) % Plt Count 252 (150-400) X10^3/uL Neut % (Auto) Not Reportable (50-75) % Lymph % (Auto) Not Reportable (25-40) % Villalba % (Auto) Not Reportable (3-14) % Eos % (Auto) Not Reportable (2-4) % Baso % (Auto) Not Reportable (0-2) % Neut # (Auto) (6696-8352) /uL Lymph # (Auto) Not Reportable (0950-3208) /uL Villalba # (Auto) Not Reportable (0-900) /uL Eos # (Auto) (0-450) /uL Baso # (Auto) Not Reportable (0-100) /uL Total Counted 100 Seg Neutrophils % 82.0 H (38-70) % Band Neutrophils % 8.0 H (3-7) % Lymphocytes % (Manual) 2.0 L (25-45) % Atypical Lymphs % 3.0 H ( - 0) % Monocytes % (Manual) 4.0 (2-11) % Basophils % (Manual) 1.0 (0-1) % Neutrophils # (Manual) 09996 H (3574-6912) /uL RBC Morphology Normal morphology PT (9.4-12.5) SECONDS INR (0.9-1.3) Sodium 118 L* (137-145) mmol/L Potassium 4.8 (3.4-5.1) mmol/L Chloride 91 L (98-107) mmol/L Carbon Dioxide 22 (22-32) mmol/L BUN 27 H (9-20) mg/dL Creatinine 0.86 (0.66-1.25) mg/dL Estimated GFR > 60 (>60) mL/min BUN/Creatinine Ratio 31.4 H (6-22) Glucose 89 (80-110) mg/dL Lactate (0.7-2.1) mmol/L Calcium 8.7 (8.4-10.2) mg/dL Total Bilirubin (0.2-1.3) mg/dL AST (17-59) IU/L ALT (<50) IU/L Alkaline Phosphatase (38-126) U/L Total Protein (6.3-8.2) g/dL Albumin (3.5-5.0) g/dL Globulin (1.7-4.1) g/dL Albumin/Globulin Ratio (1.0-2.8) Urine Color Yellow Urine Appearance Clear Urine pH 5.0 (4.5-8.0) Ur Specific [place] 1.010 (1.000-1.035) Urine Protein Negative (Negative) Urine Glucose (UA) Negative (Negative) g/dL Urine Ketones Negative (NEGATIVE) Urine Occult Blood Negative (Negative) Urine Nitrate Negative (Negative) Urine Bilirubin Negative (NEGATIVE) Urine Urobilinogen 0.2 (0.2) E.U./dL Ur Leukocyte Esterase Negative (NEGATIVE) Urine RBC None seen (0-5/HPF) Urine WBC 0-1/hpf (0-5/HPF) Ur Squamous Epith Cells 0-1 /hpf (0-5/HPF) Urine Bacteria None seen (None) Ur Culture Indicated? Cult not indicated Vol Urine Centrifuged 10ml (spun) Ur Random Sodium < 5 L (30-90) mmol/L Fluid Color Fluid Appearance Fluid RBC /uL Fld Tot Nucleated Cell /uL Fluid Neutrophils % % Fluid Lymphocytes % % Body Fluid Clot 05/28/24 Range/Units 18:56 WBC (4.5-11.0) X10^3/uL RBC (4.5-5.9) X10^6/uL Hgb (13.5-17.5) g/dL Hct (41-53) % MCV (80-100) fL MCH (26-34) PG MCHC (30-36) % RDW (11.6-14.8) % Plt Count (150-400) X10^3/uL Neut % (Auto) (50-75) % Lymph % (Auto) (25-40) % Villalba % (Auto) (3-14) % Eos % (Auto) (2-4) % Baso % (Auto) (0-2) % Neut # (Auto) (5550-4584) /uL Lymph # (Auto) (2802-1805) /uL Villalba # (Auto) (0-900) /uL Eos # (Auto) (0-450) /uL Baso # (Auto) (0-100) /uL Total Counted Seg Neutrophils % (38-70) % Band Neutrophils % (3-7) % Lymphocytes % (Manual) (25-45) % Atypical Lymphs % ( - 0) % Monocytes % (Manual) (2-11) % Basophils % (Manual) (0-1) % Neutrophils # (Manual) (8835-1245) /uL RBC Morphology PT (9.4-12.5) SECONDS INR (0.9-1.3) Sodium 122 L (137-145) mmol/L Potassium 4.5 (3.4-5.1) mmol/L Chloride 92 L (98-107) mmol/L Carbon Dioxide 24 (22-32) mmol/L BUN 25 H (9-20) mg/dL Creatinine 1.04 (0.66-1.25) mg/dL Estimated GFR > 60 (>60) mL/min BUN/Creatinine Ratio 24.0 H (6-22) Glucose 130 H (80-110) mg/dL Lactate (0.7-2.1) mmol/L Calcium 8.6 (8.4-10.2) mg/dL Total Bilirubin 1.9 H (0.2-1.3) mg/dL AST 50 (17-59) IU/L ALT 24 (<50) IU/L Alkaline Phosphatase 124 D (38-126) U/L Total Protein 5.2 L (6.3-8.2) g/dL Albumin 2.9 L (3.5-5.0) g/dL Globulin 2.3 (1.7-4.1) g/dL Albumin/Globulin Ratio 1.3 (1.0-2.8) Urine Color Urine Appearance Urine pH (4.5-8.0) Ur Specific [place] (1.000-1.035) Urine Protein (Negative) Urine Glucose (UA) (Negative) g/dL Urine Ketones (NEGATIVE) Urine Occult Blood (Negative) Urine Nitrate (Negative) Urine Bilirubin (NEGATIVE) Urine Urobilinogen (0.2) E.U./dL Ur Leukocyte Esterase (NEGATIVE) Urine RBC (0-5/HPF) Urine WBC (0-5/HPF) Ur Squamous Epith Cells (0-5/HPF) Urine Bacteria (None) Ur Culture Indicated? Vol Urine Centrifuged Ur Random Sodium (30-90) mmol/L Fluid Color Fluid Appearance Fluid RBC /uL Fld Tot Nucleated Cell /uL Fluid Neutrophils % % Fluid Lymphocytes % % Body Fluid Clot Urine Dip Bedside Urine Glucose Negative Bedside Urine Bilirubin - Negative Bedside Urine Ketone - Negative Urine Specific [place] 1.015 Bedside Urine Occult Blood - Negative Bedside Urine pH 6.0 Bedside Urine Protein - Negative Bedside Urine Urobilinogen - Negative Bedside Urine Nitrite - Negative Bedside Urine Leukocytes - Negative Esterase MDM Narrative Medical decision making narrative: 59-year-old male with history of cirrhosis, last drink July 2023, recurrent ascites, large volume tap last Sunday, did not have order for outpatient tap today, no fevers, labs sent, ultrasound-guided therapeutic paracentesis ordered. Post paracentesis IV albumin ordered. Labs pending. White blood cell count 95042, no fever, add lactate. Sodium 121 noted. We will add paracentesis studies cell count, culture, albumin. Patient had 11 L therapeutic tap, we will give 50 g albumin (25 g x 2 infusions). Paracentesis fluid shows white blood cell count 280 with 0% neutrophils, not consistent with SBP. Paracentesis fluid culture had been requested. CT abdomen and pelvis imaging, chest x-ray imaging pending. CT abdomen pelvis shows moderate ascites, some perineal thickening consider subacute peritonitis. Cirrhosis changes again mentioned. No acute other changes mentioned. See radiology report. Hyponatremia 121 noted, leukocytosis serum unclear etiology, consider discussion with hospitalist regarding admission. Second IV 25 g albumin infusion still in process. Urine dip negative. Patient amenable 1400, case discussed with hospitalist Dr. Florentino, we will repeat sodium, we will repeat CBC, he is reviewing chart. Repeat white blood cell count 88458, repeat sodium 118, results relayed to hospitalist Dr Florentino White blood cell count increasing, blood culture sent prior, urinalysis negative, CT without acute changes obvious. IV ceftriaxone 1600, hospitalist here Dr Florentino believes patient requires higher level of care with Nephrology Services, not available here, see his consult note. Hospitalist was apparently able to review through [employer] system prior hospitalization [place] recently, sodium was low, GI and nephrology services were consulted with albumin boluses, fluid restriction, found at that time to have C diff colitis which which was treated with oral vancomycin. Hospitalist here believes patient needs nephrology consultation not available here. Patient amenable to consultation, we will seek consultation with Nephrology capable facility. 1700, still no prospects for transfer per [facility] query thus far. 1830, still no processed for transfer, [facility] query in progress. Signed out to Dr Lugo 1999 -Dr. Lugo -care of patient is signed out to me by Dr. Garcias. Independent review of patient and chart performed by myself. Patient resting comfortably in bed, he states that he feels much better after receiving the paracentesis. Patient states that the only reason he came to the emergency department today was that he needed a paracentesis. If it were not for the paracentesis he feels at his baseline and would not have gone to seek medical attention. He tells me that his baseline sodium is between 120 and 128 based on numerous previous lab draws. He states that he has had symptoms of low sodium before and he did not experience any of those symptoms today or in the week preceding his visit to the emergency department. Repeat sodium 122. No evidence of acute bacterial infection on scans today. Discussed case with Dr. Cramer of nephrology, who stated that there does not appear to be any indication for transfer for Nephrology, however she was happy to consult via phone if needed. Case also discussed with GI doctor, Dr. Gomez, who stated that the leukocytosis would overall require a septic evaluation, but this is not appear to be a GI problem related to his cirrhosis considering negative fluid studies. Patient has been stanley scanned, there was mild peritoneal thickening, however abdominal fluid studies were negative for signs of SBP. Patient states that he was like to go home and does not feel the need to stay in the hospital. Based on improving labs, consults with specialists, and the fact that patient has very reliable help from his mother and sister I believe that this is a reasonable option. Blood cultures and fluid cultures has been sent, if there are any abnormalities patient will be contacted to return to the emergency department for follow up. Strict ED return precautions discussed with the patient and mother at bedside. Critical Care Time <Stewart Garcias MD - Last Filed: 05/29/24 07:32> Critical Care Time Critical Care Time: Yes Total Critical Care Time: 35 Attestation: The high probability of a clinically significant, sudden or life threatening deterioration of the [abdominopelvic, genitourinary, cardio pulmonary] system(s) required my full and direct attention, intervention and personal management. The aggregate critical care time was [35] minutes. This time is in addition to time spent performing reported procedures but includes the following: [x] Data Review and interpretation [x] Patient assessment and monitoring of vital signs [x] Documentation [x] Medication orders and management Discharge Plan Departure Patient Disposition: Home Clinical Impression: Abdominal ascites, History of cirrhosis of liver, Hyponatremia, Leukocytosis Instructions: DI for Abdominal Paracentesis Activity Restrictions/Additional Instructions: Your sodium today is improving. The most recent level was 122. You do have a gradually increasing white blood cell count of uncertain source. Cultures of your blood and the fluid you provided from your paracentesis are in the lab and are being cultured. If anything abnormal results from your cultures we will call you. Otherwise I recommend following up closely with your transplant team. Prescriptions: No Action furosemide [Lasix] 40 mg tablet 40 mg PO DAILY metoprolol succinate 25 mg tablet extended release 24 hr 25 mg PO DAILY zinc sulfate 50 mg zinc (220 mg) capsule 50 mg PO DAILY spironolactone 25 mg tablet 25 mg PO BID pantoprazole 40 mg tablet,delayed release (DR/EC) 40 mg PO DAILY hydrocortisone 2.5 % cream with applicator 2.5 ea SD DAILY PRN Referrals: Kenna Jon PA-C [Primary Care Provider] - Stand Alone Forms: Patient Portal/API
[2024-05-28 10:52] LABS: Add Manual Diff / Slide Review NO; Basophils Absolute Auto 300 /uL (0-100); Basophils Percent Auto 1.1 % (0-2); Eosinophils Absolute Auto 0 /uL (0-450); Eosinophils Percent Auto 0.1 % (2-4); Hematocrit 30.1 % (41-53); Hemoglobin 10.2 g/dL (13.5-17.5); Lymphocytes Absolute Auto 400 /uL (1100-4500); Lymphocytes Percent Auto 1.8 % (25-40); Mean Corpuscular HGB Conc 33.8 % (30-36); Mean Corpuscular Hemoglobin 31.6 PG (26-34); Mean Corpuscular Volume 93.3 fL (80-100); Monocytes Absolute Auto 2900 /uL (0-900); Monocytes Percent Auto 11.4 % (3-14); Neutrophils Absolute Auto 21400 /uL (1500-7000); Neutrophils Percent Auto 85.6 % (50-75); Platelet Count 319 X10^3/uL (150-400); Red Blood Cell Count 3.22 X10^6/uL (4.5-5.9)
[2024-05-28 11:00] LABS: INR 1.7 (0.9-1.3); Prothrombin Time 19.3 SECONDS (9.4-12.5)
[2024-05-28 11:09] LABS: Alanine Aminotransferase 30 IU/L (<50); Albumin 2.9 g/dL (3.5-5.0); Alkaline Phosphatase 197 U/L (38-126); Aspartate Aminotransferase 69 IU/L (17-59); BUN Creatinine Ratio 29.2 (6-22); Bilirubin Total 1.6 mg/dL (0.2-1.3); Blood Urea Nitrogen 28 mg/dL (9-20); Calcium 8.9 mg/dL (8.4-10.2); Carbon Dioxide 25 mmol/L (22-32); Chloride 90 mmol/L (98-107); Estimated Glomerular Filt Rate > 60 mL/min (>60); Glucose 79 mg/dL (80-110); HEMOLYSIS < 15 (0-50); Potassium 4.9 mmol/L (3.4-5.1); Sodium 121 mmol/L (137-145); Total Protein 5.9 g/dL (6.3-8.2)
--- NOTE | 2024-05-28 11:13 | PC.NURSE ---
1050 Ultrasound Guided Paracentesis performed by provider from IR. Estimated to remove 12-15 liters from patient. This EDRN is at bedside changing suction cannisters at this time. Vital signs stable. patient's pain is relieved. 7L of ascites fluid has been removed at this time.
--- NOTE | 2024-05-28 11:40 | PC.NURSE ---
output from paracentesis
--- NOTE | 2024-05-28 11:53 | DI.RAD.S_ITS ---
PROCEDURE: XR CHEST 1V INDICATIONS: WBC 25k unclear cause TECHNIQUE: One view of the chest was acquired. COMPARISON: [facility], CT, CT CHEST ABD PEL W CON, 05/28/2024, 12:18. FINDINGS: Surgical changes and devices: None. Lungs and pleura: Low lung volumes. Crowding of the perihilar vasculature Mediastinum: Mediastinal contours appear normal. Heart size is normal. Bones and chest wall: No suspicious bony lesions. Overlying soft tissues appear unremarkable. IMPRESSION: No acute cardiopulmonary abnormality is seen. Dictated by: Jose Sauceda M.D. on 05/28/2024 at 13:01 Approved by: Jose Sauceda M.D. on 05/28/2024 at 13:02
--- NOTE | 2024-05-28 12:01 | DI.CT.S_ITS ---
PROCEDURE: CT CHEST ABD PEL W CON INDICATIONS: WBC 25k unclear cause TECHNIQUE: After the administration of intravenous contrast, 5 mm thick sections acquired from the lung apices to the symphysis. 5 mm coronal and sagittal reformats were performed, with additional 7 mm MIP reformats through the lungs. For radiation dose reduction, the following was used: automated exposure control, adjustment of mA and/or kV according to patient size. COMPARISON: None. FINDINGS: Image quality: Mildly suboptimal due to motion artifact. CHEST: Lower Neck: No enlarged lymph nodes. Thyroid: No thyroid nodules which require sonographic follow up, per consensus guidelines. Axillae: No enlarged lymph nodes. Chest Wall: Gynecomastia. Lungs and Pleura: No pneumothorax or pleural effusions. Atelectasis in the left lower lobe. No suspicious nodule, accounting for motion artifact Heart: Heart size is enlarged. No pericardial effusion. Three-vessel coronary calcifications, marked for age. Thoracic Vessels: The aorta and pulmonary arteries demonstrate normal size. Mediastinum and Cindi: No enlarged lymph nodes. Esophagus: No wall thickening. No hiatal hernia. ABDOMEN: Liver: Cirrhosis. Single phase contrast evaluation is suboptimal for detection of hepatocellular carcinoma. No large mass identified. Patent portal vein. Gallbladder: No radiopaque gallstones or wall thickening. Biliary ducts: No biliary dilation. Pancreas: No ductal dilation. Spleen: Size is within normal limits. Adrenal Glands: No adrenal nodules. Kidneys and Ureters: No hydronephrosis. No solid mass. No complex renal cystic lesion which requires follow up. Stomach and Bowel: Normal colonic caliber, without significant wall thickening. Peritoneum: Moderate volume ascites. Mild peritoneal thickening. Ventral Wall: Small umbilical hernia containing fat and fluid. Abdominal Nodes: No retroperitoneal or mesenteric adenopathy by size criteria. Vessels: Aorta and inferior vena cava are normal in size. Portosystemic collaterals. PELVIS: Pelvic Organs: Unremarkable. Bladder: No bladder wall thickening, accounting for underdistention. Pelvic Nodes: No enlarged lymph nodes. Miscellaneous: No inguinal hernias are seen. Bones: No aggressive osseous abnormality. IMPRESSION: Moderate volume ascites with mild peritoneal thickening. Findings may indicate spontaneous bacterial peritonitis in the correct clinical setting. Cirrhosis. Single phase contrast evaluation is suboptimal for detection of hepatocellular carcinoma. No large mass identified. Patent portal vein. Dictated by: Jose Sauceda M.D. on 05/28/2024 at 13:43 Approved by: Jose Sauceda M.D. on 05/28/2024 at 13:49
[2024-05-28 12:04] LABS: Body Fluid Red Blood Cells 822 /uL; Body Fluid Tot Nucleated Cells 280 /uL
[2024-05-28 12:05] LABS: Body Fluid Appearance SLIGHTLY CLOUDY; Body Fluid Clotted? NO CLOTS PRESENT; Body Fluid Color YELLOW
[2024-05-28] MEDS: ALBUMIN HUMAN 25 GM/100 ML VIAL IV ×2 (12:05→13:38)
[2024-05-28 12:09] LABS: Lactate (Lactic Acid) 2.3 mmol/L (0.7-2.1)
[2024-05-28 12:22] LABS: Neutrophils Body Fluid 0 %
[2024-05-28 12:23] LABS: Lymphocytes Body Fluid 100 %
[2024-05-28 13:32] LABS: Reflexed Lactate in 2 Hours Y
[2024-05-28 13:48] LABS: Lactate 2HR (Lactic Acid Rflx) 1.8 mmol/L (0.7-2.1)
[2024-05-28 14:27] LABS: Hematocrit 25.3 % (41-53); Hemoglobin 8.7 g/dL (13.5-17.5); Mean Corpuscular HGB Conc 34.5 % (30-36); Mean Corpuscular Hemoglobin 32.2 PG (26-34); Mean Corpuscular Volume 93.3 fL (80-100); Platelet Count 252 X10^3/uL (150-400); Red Blood Cell Count 2.71 X10^6/uL (4.5-5.9); Red Cell Distribution Width 16.4 % (11.6-14.8)
[2024-05-28 14:29] LABS: Add Manual Diff / Slide Review YES; White Blood Cell Count 30.5 X10^3/uL (4.5-11.0)
[2024-05-28 14:38] LABS: Neutrophils Absolute Manual 27450 /uL (3000-5900); RBC Morphology Normal Morphology; Total Cells Counted 100
[2024-05-28 15:26] LABS: BUN Creatinine Ratio 31.4 (6-22); Blood Urea Nitrogen 27 mg/dL (9-20); Calcium 8.7 mg/dL (8.4-10.2); Carbon Dioxide 22 mmol/L (22-32); Chloride 91 mmol/L (98-107); Estimated Glomerular Filt Rate > 60 mL/min (>60); Glucose 89 mg/dL (80-110); HEMOLYSIS < 15 (0-50); Potassium 4.8 mmol/L (3.4-5.1)
[2024-05-28 15:28] LABS: Sodium 118 mmol/L (137-145)
--- NOTE | 2024-05-28 15:35 | PC.NURSE ---
Patients son brought clean pants in, this RN and Janay RN changed his brief and pants. Patient then ambulated with FWW around the whole department reporting manageable pain, provider notified.
[2024-05-28 15:43] LABS: Appearance Urine UA CLEAR; Bilirubin Urine UA NEGATIVE (NEGATIVE); Color Urine UA YELLOW; Glucose Urine UA NEGATIVE (Negative); Ketones Urine UA NEGATIVE (NEGATIVE); Leukocyte Esterase Urine UA NEGATIVE (NEGATIVE); Nitrite Urine UA NEGATIVE (Negative); Occult Blood Urine UA NEGATIVE (Negative); Protein Urine UA NEGATIVE (Negative); Urobilinogen Urine UA 0.2 E.U./dL (0.2)
[2024-05-28 15:52] LABS: Bacteria Urine None Seen; Culture Indicated Urine Cult Not Indicated; RBC Urine None Seen (0-5/HPF); Squamous Epithelial Cell Urine 0-1 /HPF (0-5/HPF); Urine Volume 10mL (spun); WBC Urine 0-1/HPF (0-5/HPF)
--- NOTE | 2024-05-28 15:53 | PM.CN ---
History of Present Illness Consult details Date Patient Seen: 05/28/24 Time Patient Seen: 15:53 Chief complaint: needs a parenthesis Reason for consult: hyponatremia Requesting provider: Brigido Friedman Narrative: This is a 59 year old male with PMH of alcoholic cirrhosis, paroxysmal AFib, HFrEF (now recovered), L DVT with IV filter, recent admission to [facility] in [place] for hepatic / metabolic encephalopathy, C. diff colitis, and hyponatremia. During that hospitalization, he was hospitalized with a sodium of 121. It was able to be improved to approx 128 at the time of discharge. According to review of that hospitalization, he required close monitoring of his volume status in the setting of LVP with nephrology and liver service management. He was recommended to have repeat sodium after discharge. He was discharged on 04/15. I do see a repeat sodium on 05/18 that is 125. He presented today with worsening abdominal distension and pain. Much improved after 9.6 L of fluid was removed. The patient feels much improved, he denies confusion, as does family in the room today. He does have intermittent confusion, but no where near where he was when going to the hospital last month. Initial labs here however showed a sodium of 121, leukocytosis of 25,000. On repeat labs his sodium was 118, with a leukocytosis of 30.5. T bili was 1.6, improved from his recent hospitalization. Urinalysis was not indicative of infection. Urine sodium was less than 5, and urine osmolality is a send out test here and will take some time to come back. He had a therapeutic paracentesis with 9.6 L removed and he was given 50 g of albumin after. With return of his labs, a cell count and culture was sent. There was 280 total nucleated cells, with 100% lymphocytes and 0% neutrophils according to the cell count report. There were 822 red blood cells. The hospitalist service was asked to evaluate for admission after the 1st sodium lab. I have extensively reviewed the patient's hospitalization in [place] recently. His sodium was slowly increased the help of Nephrology and GI services with albumin boluses, fluid restriction according to the documentation. During that admission was also found to have C diff colitis and was treated with oral vanco since. Diagnostic paracentesis on that admission was also unremarkable for SBP and he did have 6 L of fluid drained at the time of discharge. Given this patient's complex cirrhosis picture, along with Nephrology management see struggling to correct his hyponatremia at a higher level center, I currently recommend that the patient be transferred for Nephrology consultation services as an inpatient which are not available at [facility]. Meds Home Medications and Allergies Home Medications Medication Instructions Recorded Confirmed Type furosemide 40 mg tablet (Lasix) 40 mg PO DAILY Liver/Fliids 05/16/24 05/28/24 History hydrocortisone 2.5 % rectal cream 2.5 ea [place] DAILY PRN 05/16/24 05/16/24 History with applicator metoprolol succinate 25 mg 25 mg PO DAILY 05/16/24 05/28/24 History tablet,extended release 24 hr pantoprazole 40 mg tablet,delayed 40 mg PO DAILY 05/16/24 05/16/24 History release spironolactone 25 mg tablet 25 mg PO BID 05/16/24 05/28/24 History zinc sulfate 50 mg zinc (220 mg) 50 mg PO DAILY 05/16/24 05/16/24 History capsule Allergies Allergy/AdvReac Type Severity Reaction Status Date / Time No Known Drug Allergies Allergy Verified 05/28/24 10:08 Review of Systems Review of Systems Narrative: All other systems reviewed with the patient and are negative unless otherwise stated. Exam Vital Signs (past 8 hours): - 05/28/24 10:05 05/28/24 11:10 05/28/24 11:10 Temperature 98 F Pulse Rate 104 H 96 H 95 H Respiratory Rate 17 17 Blood Pressure 140/67 121/58 L Pulse Oximetry 100 98 98 Oxygen Delivery Method Room Air Room Air 05/28/24 11:30 05/28/24 11:32 05/28/24 11:32 Temperature Pulse Rate 96 H 95 H Respiratory Rate Blood Pressure 117/56 L Pulse Oximetry 98 99 Oxygen Delivery Method 05/28/24 12:00 05/28/24 12:00 05/28/24 12:23 Temperature Pulse Rate 97 H 100 H Respiratory Rate Blood Pressure 106/58 L Pulse Oximetry 98 94 Oxygen Delivery Method 05/28/24 12:24 05/28/24 12:24 05/28/24 12:30 Temperature Pulse Rate 100 H Respiratory Rate Blood Pressure 117/55 L 111/56 L Pulse Oximetry 99 Oxygen Delivery Method 05/28/24 12:30 05/28/24 12:45 05/28/24 12:45 Temperature Pulse Rate 98 H 99 H Respiratory Rate Blood Pressure 112/59 L Pulse Oximetry 99 98 Oxygen Delivery Method 05/28/24 13:00 05/28/24 13:00 05/28/24 13:15 Temperature Pulse Rate 94 H Respiratory Rate Blood Pressure 113/59 L 118/59 L Pulse Oximetry 97 Oxygen Delivery Method 05/28/24 13:15 05/28/24 13:30 05/28/24 13:30 Temperature Pulse Rate 98 H 98 H Respiratory Rate Blood Pressure 111/57 L Pulse Oximetry 98 98 Oxygen Delivery Method Room Air 05/28/24 13:45 05/28/24 13:45 05/28/24 14:00 Temperature Pulse Rate 103 H Respiratory Rate Blood Pressure 118/59 L 119/60 Pulse Oximetry 98 Oxygen Delivery Method 05/28/24 14:00 05/28/24 14:15 05/28/24 14:15 Temperature Pulse Rate 97 H 97 H Respiratory Rate Blood Pressure 109/58 L Pulse Oximetry 98 99 Oxygen Delivery Method 05/28/24 14:30 05/28/24 14:30 05/28/24 14:45 Temperature Pulse Rate 93 H Respiratory Rate Blood Pressure 117/58 L 115/56 L Pulse Oximetry 97 Oxygen Delivery Method 05/28/24 14:45 05/28/24 15:00 05/28/24 15:00 Temperature Pulse Rate 92 H 99 H Respiratory Rate 14 21 Blood Pressure 114/57 L Pulse Oximetry 96 98 Oxygen Delivery Method 05/28/24 15:15 05/28/24 15:15 05/28/24 15:30 Temperature Pulse Rate 96 H Respiratory Rate 18 Blood Pressure 113/57 L 112/59 L Pulse Oximetry 97 Oxygen Delivery Method 05/28/24 15:30 05/28/24 15:45 05/28/24 15:45 Temperature Pulse Rate 95 H 94 H Respiratory Rate 21 15 Blood Pressure 114/59 L Pulse Oximetry 96 97 Oxygen Delivery Method Oxygen Delivery Method Room Air Narrative Exam Narrative: General:? Patient is well developed and well nourished, in no distress at this time. HEENT:? Normocephalic, atraumatic, extraocular muscles intact, oral pharynx is clear and mucous membranes are moist. Neck: supple and symmetric, trachea is midline, no cervical adenopathy. Chest:? Normal AP diameter and contour without kyphoscoliosis, no tachypnea, equal chest rise bilaterally. Lungs:? CTA b/l no wheezing rhonchi or rales. Cardio:?RRR no m/r/g. Abdomen: S NT ND. + ascites, bandage without leakage. Musculoskeletal:? Muscle strength and tone are equal within normal limits, no deformity. Extremities: 2+ pitting edema LLE, trace to 1+ RLE. Skin:? Pale,? Warm to touch,dry and intact without rashes, ulcerations or petechiae.? Neuro:? Alert and orientated x3, sensation to touch intact in all extremities, no gross deficits noted of cranial nerves. Psych:? Patient has a well-kept appearance, appropriate affect, mental status attitude thought context and judgment are appropriate for age. Objective Labs 05/28/24 14:20 05/28/24 15:05 Labs: Laboratory Results - last 24 hr 05/28/24 05/28/24 05/28/24 10:42 11:50 12:01 WBC 25.0 H RBC 3.22 L Hgb 10.2 L Hct 30.1 L MCV 93.3 MCH 31.6 MCHC 33.8 RDW 16.0 H Plt Count 319 Neut % (Auto) 85.6 H Lymph % (Auto) 1.8 L [place] % (Auto) 11.4 Eos % (Auto) 0.1 L Baso % (Auto) 1.1 Neut # (Auto) 62442 H Lymph # (Auto) 400 L [place] # (Auto) 2900 H Eos # (Auto) 0 Baso # (Auto) 300 H Total Counted Seg Neutrophils % Band Neutrophils % Lymphocytes % (Manual) Atypical Lymphs % Monocytes % (Manual) Basophils % (Manual) Neutrophils # (Manual) RBC Morphology PT 19.3 H INR 1.7 H Sodium 121 L Potassium 4.9 Chloride 90 L Carbon Dioxide 25 BUN 28 H Creatinine 0.96 Estimated GFR > 60 BUN/Creatinine Ratio 29.2 H Glucose 79 L Lactate 2.3 H 1.8 Calcium 8.9 Total Bilirubin 1.6 H AST 69 H ALT 30 Alkaline Phosphatase 197 H Total Protein 5.9 L Albumin 2.9 L Globulin 3.0 Albumin/Globulin Ratio 1.0 Urine Color Urine Appearance Urine pH Ur Specific [place] Urine Protein Urine Glucose (UA) Urine Ketones Urine Occult Blood Urine Nitrate Urine Bilirubin Urine Urobilinogen Ur Leukocyte Esterase Urine RBC Urine WBC Ur Squamous Epith Cells Urine Bacteria Ur Culture Indicated? Vol Urine Centrifuged Fluid Color Yellow Fluid Appearance Slightly cloudy Fluid RBC 822 Fld Tot Nucleated Cell 280 Fluid Neutrophils % 0 Fluid Lymphocytes % 100 Body Fluid Clot No clots present 05/28/24 05/28/24 05/28/24 13:58 14:20 15:05 WBC 30.5 H* RBC 2.71 L Hgb 8.7 L Hct 25.3 L MCV 93.3 MCH 32.2 MCHC 34.5 RDW 16.4 H Plt Count 252 Neut % (Auto) Not Reportable Lymph % (Auto) Not Reportable [place] % (Auto) Not Reportable Eos % (Auto) Not Reportable Baso % (Auto) Not Reportable Neut # (Auto) Lymph # (Auto) Not Reportable [place] # (Auto) Not Reportable Eos # (Auto) Baso # (Auto) Not Reportable Total Counted 100 Seg Neutrophils % 82.0 H Band Neutrophils % 8.0 H Lymphocytes % (Manual) 2.0 L Atypical Lymphs % 3.0 H Monocytes % (Manual) 4.0 Basophils % (Manual) 1.0 Neutrophils # (Manual) 52864 H RBC Morphology Normal morphology PT INR Sodium 118 L* Potassium 4.8 Chloride 91 L Carbon Dioxide 22 BUN 27 H Creatinine 0.86 Estimated GFR > 60 BUN/Creatinine Ratio 31.4 H Glucose 89 Lactate Calcium 8.7 Total Bilirubin AST ALT Alkaline Phosphatase Total Protein Albumin Globulin Albumin/Globulin Ratio Urine Color Yellow Urine Appearance Clear Urine pH 5.0 Ur Specific [place] 1.010 Urine Protein Negative Urine Glucose (UA) Negative Urine Ketones Negative Urine Occult Blood Negative Urine Nitrate Negative Urine Bilirubin Negative Urine Urobilinogen 0.2 Ur Leukocyte Esterase Negative Urine RBC None seen Urine WBC 0-1/hpf Ur Squamous Epith Cells 0-1 /hpf Urine Bacteria None seen Ur Culture Indicated? Cult not indicated Vol Urine Centrifuged 10ml (spun) Fluid Color Fluid Appearance Fluid RBC Fld Tot Nucleated Cell Fluid Neutrophils % Fluid Lymphocytes % Body Fluid Clot [facility] Medical History Sleep apnea (~2018) Mumps Measles Chicken pox Liver disease (~2022) Cirrhosis (~2022) Hypertension (~2000) Surgical History Anesthesia History of surgery Family History Father History of heart disease Tobacco & Substance Use Smoking Status: Never smoker Assessment & Plan Assessment & Plan narrative: 1. Hyponatremia, acute on chronic, - Na 121 on presentation, s/p 9.6L removed with 50 g albumin running. Sodium now 118. - continue sodium checks q4 - urine sodium is <5, urine osm is ordered but will take days to return (another factor in decision to recommend transer) - recommend help of nephrology consultation in management of hyponatremia given complex volume status, previous admission requiring albumin boluses within the last 2 months. 2. Leukocytosis - no fevers, or signs or symptoms of infection. He had recent admission for C. diff colitis in [place]. The etiology of this is not entirely clear. - UA is negative, CXR is negative. Cell count from paracentesis is negative for SBP with 280 cells but 0% neutrophils. - continue ceftriaxone given CT imaging, though cell count is negative. - If diarrhea, recheck GI panel for C. diff recurrence - blood and ascites cultures sent from ER 3. Alcoholic liver cirrhosis (+PSE, +EV, - SBP) - patient reports approx 4 bowel movements daily, not taking lactulose or rifaximin - continue lasix and aldactone per home dosing. - follow up paracentesis cultures sent 4. CHFrEF (recently improved) - EF 50-55% on most recent TTE 03/2024, mild mitral and tricuspid regurg without other abnormalities noted - continue home beta lee, not on britt-inhibition 5. paroxysmal afib - not on AC - continue home metoprolol 25 mg daily 6. L DVT with IVC filter 7. Acute anemia - unclear etiology, patient denies melena, may relate to ? hemodilution, - continue to follow - goal Hg >7 Code: Full, surrogate is patient's family trust DVT: SCDs I have utilized all available immediate resources to obtain, update, or review the patient's current medications. Dispo: I have extensively reviewed the patient's hospitalization in [place] recently. His sodium was slowly increased to a max of 128 that admission with the help of Nephrology and GI services with albumin boluses, fluid restriction, and diuresis according to the documentation. Given this patient's complex cirrhosis picture, complex volume status, need for albumin boluses with nephrology during recent admission, I currently recommend that the patient be transferred for Nephrology consultation services as an inpatient which are not available at [facility] to help manage this patient's complex hyponatremia. In the meantime, hospitalist will help titrate. For now given home furosemide 40 mg PO. Has 50 g albumin running now. will continue sodium checks q4hr. Na currently 118. If worsening or develops altered mentation, will need 3% infusion, possible ICU. Additional history obtained via discussions with the ER provider and review of outside hospital records. These discussions contributed to the creation of the above assessment and plan. I have reviewed patient's presenting documentation, labs, and imaging personally. Time-Based Coding :: [TOTAL MINUTES] spent with patient and on the chart (including review of chart, obtaining history, exam, reviewing outside data, placing orders, documenting exam and treatment plan, and counseling patient) on [DATE].
[2024-05-28 15:56] LABS: Sodium Urine Random < 5 mmol/L (30-90)
[2024-05-28] MEDS: FUROSEMIDE 40 MG TABLET PO (16:06)
[2024-05-28] MEDS: cefTRIAXone 1,000 MG in SODIUM CHLORIDE 0.9% 100 ML 200 MG IV (16:23)
--- NOTE | 2024-05-28 18:05 | PC.NURSE ---
Hospital Call list for patient transfer [id number]-[facility] [place] [place], spoke to Geetha, patient on wait list 1802-[facility], spoke with Maci, stated they have no beds and to call back later 1803- [place], no answer, will call back
[2024-05-28 19:30] LABS: Alanine Aminotransferase 24 IU/L (<50); Albumin 2.9 g/dL (3.5-5.0); Albumin Globulin Ratio 1.3 (1.0-2.8); Alkaline Phosphatase 124 U/L (38-126); Aspartate Aminotransferase 50 IU/L (17-59); Bilirubin Total 1.9 mg/dL (0.2-1.3); Blood Urea Nitrogen 25 mg/dL (9-20); Calcium 8.6 mg/dL (8.4-10.2); Carbon Dioxide 24 mmol/L (22-32); Chloride 92 mmol/L (98-107); Estimated Glomerular Filt Rate > 60 mL/min (>60); Globulin 2.3 g/dL (1.7-4.1); Glucose 130 mg/dL (80-110); HEMOLYSIS < 15 (0-50); Potassium 4.5 mmol/L (3.4-5.1); Sodium 122 mmol/L (137-145); Total Protein 5.2 g/dL (6.3-8.2)
--- NOTE | 2024-05-28 20:01 | PM.CALLCOV.1 ---
Call Coverage Note Note Narrative of Care Provided: Na improved to 122, continue home furosemide daily, fluid restriction. If improving and asymptomatic can go home if Na is >125. If he discharges recommend more strict fluid restriction at home.
[2024-05-30 11:40] LABS: Osmolality Urine 505 mOsmol/kg (.)
== END 2024-05-28 20:45 | disposition home or self-care (01) ==
PROVIDERS: Emergency Medicine; Internal Medicine; Emergency Provider Emergency Medicine; PCP Physician Assistant Medical
DX: R18.8 Other ascites (principal); K74.60 Unspecified cirrhosis of liver; E87.1 Hypo-osmolality and hyponatremia; D72.829 Elevated white blood cell count, unspecified
CPT/HCPCS: 36415; 49083; 71045; 71260; 74177; 80048; 80053; 81001; 81003; 82042; 83605; 83935; 84300; 85007; 85025; 85610; 87040; 87070; 87075; 87205; 89051; 96365; 96366; 96367; 99285; 99291; J0696; P9041; Q9967

== ENCOUNTER 2024-06-02 12:50 | Outpatient (CLI) | payer OTHER, SELFPAY ==
[2024-06-02] VITALS (10 sets, daily range): BP systolic 108–134; BP diastolic 58–74; PULSE 80–87; RESP 12–100; TEMP 36.7; O2SAT 14–100
--- NOTE | 2024-06-02 | DI.US.S_ITS ---
PROCEDURE: US PARACENTESIS INDICATIONS: ASCITES OF LIVER TECHNIQUE: The indications, alternatives, benefits, risks, and complications of the procedure were explained to the patient. Written informed consent was obtained and placed in the chart. The abdomen and pelvis were examined sonographically, and an appropriate site was chosen for paracentesis. The skin was prepared and draped in the usual sterile fashion, and 1% lidocaine was infiltrated from the skin down through the peritoneal surface. A 19-gauge catheter-covered needle was then introduced into the peritoneal space, the catheter was advanced and the needle was withdrawn, and thereafter peritoneal fluid was withdrawn. The catheter was then removed and a dressing was applied. The fluid was discarded if the clinician did not order diagnostic testing of the fluid. COMPARISON: None. FINDINGS: Access site: Right upper quadrant Needle: One-Step centesis catheter with introducer needle. Fluid volume and description: 10,750 mL clear yellow fluid Fluid sent for diagnostic testing: none Medications: 1% lidocaine for local anaesthesia. Complications: None. IMPRESSION: Successful ultrasound-guided paracentesis. Dictated by: Wesley Wolf M.D. on 06/02/2024 at 16:53 Approved by: Wesley Wolf M.D. on 06/02/2024 at 16:54
[2024-06-02] MEDS: ALBUMIN HUMAN 50 GM/200 ML VIAL IV (14:33)
--- NOTE | 2024-06-02 16:37 | PC.NURSE ---
Upon removal of the patient's IV catheter at the end of his infusion. The tegaderm adhered to the patient's skin and caused a skin tear approximately [id number]. A non stick telfa was placed over the site with coban to secure. Patient advised to watch for signs of infection and to be seen immediately by his PCP, urgent care, or ED if sign/symptoms of infection do arise.
== END 2024-06-02 16:19 | disposition home or self-care (01) ==
LOC: US 12:50
PROVIDERS: PCP Physician Assistant Medical
DX: K70.31 Alcoholic cirrhosis of liver with ascites (principal)
CPT/HCPCS: 49083; 96365; 96366; P9041

== ENCOUNTER 2024-06-09 09:32 | Outpatient (CLI) | payer OTHER, SELFPAY ==
[2024-06-09] VITALS (12 sets, daily range): BP systolic 109–128; BP diastolic 57–71; PULSE 74–81; RESP 12–98; TEMP 36.7–37.1; O2SAT 98–99
--- NOTE | 2024-06-09 09:33 | DI.US.S_ITS ---
PROCEDURE: US PARACENTESIS INDICATIONS: ASCITIES TECHNIQUE: The indications, alternatives, benefits, risks, and complications of the procedure were explained to the patient. Written informed consent was obtained and placed in the chart. The abdomen and pelvis were examined sonographically, and an appropriate site was chosen for paracentesis. The skin was prepared and draped in the usual sterile fashion, and 1% lidocaine was infiltrated from the skin down through the peritoneal surface. A 19-gauge catheter-covered needle was then introduced into the peritoneal space, the catheter was advanced and the needle was withdrawn, and thereafter peritoneal fluid was withdrawn. The catheter was then removed and a dressing was applied. The fluid was discarded if the clinician did not order diagnostic testing of the fluid. COMPARISON: [facility], PARACENTESIS, 06/02/2024, 13:27. FINDINGS: Access site: Right lower quadrant Needle: One-Step centesis catheter with introducer needle. Fluid volume and description: 5.5 liters of yellow fluid Fluid sent for diagnostic testing: If ordered by requesting team Medications: 1% lidocaine for local anaesthesia. Complications: None. IMPRESSION: Successful ultrasound-guided paracentesis. Dictated by: Shravan Salcedo M.D. on 06/09/2024 at 16:48 Approved by: Shravan Salcedo M.D. on 06/09/2024 at 16:49
[2024-06-09] MEDS: ALBUMIN HUMAN 50 GM/200 ML VIAL IV (11:14)
== END 2024-06-09 13:14 | disposition home or self-care (01) ==
PROVIDERS: PCP Physician Assistant Medical; Referring Provider Physician Assistant; Visit Provider Physician Assistant
DX: K70.31 Alcoholic cirrhosis of liver with ascites (principal)
CPT/HCPCS: 49083; 96365; 96366; P9041

== ENCOUNTER 2024-06-16 09:32 | Outpatient (CLI) | payer OTHER, SELFPAY ==
[2024-06-16] VITALS (9 sets, daily range): BP systolic 100–135; BP diastolic 56–81; PULSE 74–89; RESP 14–18; TEMP 36.7–36.9; O2SAT 97–99
--- NOTE | 2024-06-16 09:33 | DI.US.S_ITS ---
PROCEDURE: US PARACENTESIS INDICATIONS: ASCITIES TECHNIQUE: The indications, alternatives, benefits, risks, and complications of the procedure were explained to the patient. Written informed consent was obtained and placed in the chart. The abdomen and pelvis were examined sonographically, and an appropriate site was chosen for paracentesis. The skin was prepared and draped in the usual sterile fashion, and 1% lidocaine was infiltrated from the skin down through the peritoneal surface. A 19-gauge catheter-covered needle was then introduced into the peritoneal space, the catheter was advanced and the needle was withdrawn, and thereafter peritoneal fluid was withdrawn. The catheter was then removed and a dressing was applied. The fluid was discarded if the clinician did not order diagnostic testing of the fluid. COMPARISON: [facility], PARACENTESIS, 06/09/2024, 10:30. [facility], PARACENTESIS, 06/02/2024, 13:27. [facility], PARACENTESIS, 05/28/2024, 10:33. [facility], PARACENTESIS, 05/21/2024, 10:17. FINDINGS: Access site: Right lower quadrant Needle: One-Step centesis catheter with introducer needle. Fluid volume and description: 5 liters, clear, yellow fluid Fluid sent for diagnostic testing: No Medications: 1% lidocaine for local anaesthesia. Complications: None. IMPRESSION: Successful ultrasound-guided paracentesis. Dictated by: Ulysses Rivas M.D. on 06/16/2024 at 13:14 Approved by: Ulysses Rivas M.D. on 06/16/2024 at 13:15
[2024-06-16] MEDS: ALBUMIN HUMAN 50 GM/200 ML VIAL IV (11:28)
== END 2024-06-16 13:13 | disposition home or self-care (01) ==
LOC: US 09:32
PROVIDERS: PCP Physician Assistant Medical
DX: K70.31 Alcoholic cirrhosis of liver with ascites (principal)
CPT/HCPCS: 49083; 96365; 96366; P9041

== ENCOUNTER 2024-06-23 10:05 | Outpatient (CLI) | payer OTHER, SELFPAY ==
[2024-06-23] VITALS (10 sets, daily range): BP systolic 108–144; BP diastolic 56–81; PULSE 71–83; RESP 16; TEMP 36.9–37.1; O2SAT 97–99
--- NOTE | 2024-06-23 10:08 | DI.US.S_ITS ---
PROCEDURE: US PARACENTESIS INDICATIONS: ASCITIES TECHNIQUE: The indications, alternatives, benefits, risks, and complications of the procedure were explained to the patient. Written informed consent was obtained and placed in the chart. The abdomen and pelvis were examined sonographically, and an appropriate site was chosen for paracentesis. The skin was prepared and draped in the usual sterile fashion, and 1% lidocaine was infiltrated from the skin down through the peritoneal surface. A 19-gauge catheter-covered needle was then introduced into the peritoneal space, the catheter was advanced and the needle was withdrawn, and thereafter peritoneal fluid was withdrawn. The catheter was then removed and a dressing was applied. The fluid was discarded if the clinician did not order diagnostic testing of the fluid. COMPARISON: [facility], PARACENTESIS, 06/16/2024, 10:19. FINDINGS: Access site: Left lower quadrant Needle: One-Step centesis catheter with introducer needle. Fluid volume and description: 11,100 clear fluid Fluid sent for diagnostic testing: Not requested Medications: 1% lidocaine for local anaesthesia. Complications: None. IMPRESSION: Successful ultrasound-guided paracentesis. Dictated by: Jose Sauceda M.D. on 06/23/2024 at 15:51 Approved by: Jose Sauceda M.D. on 06/23/2024 at 15:52
[2024-06-23] MEDS: ALBUMIN HUMAN 50 GM/200 ML VIAL IV (11:30)
[2024-06-23 13:49] LABS: Add Manual Diff / Slide Review NO; Basophils Absolute Auto 100 /uL (0-100); Eosinophils Absolute Auto 0 /uL (0-450); Eosinophils Percent Auto 0.4 % (2-4); Hematocrit 28.9 % (41-53); Hemoglobin 9.9 g/dL (13.5-17.5); Lymphocytes Absolute Auto 1000 /uL (1100-4500); Lymphocytes Percent Auto 17.2 % (25-40); Mean Corpuscular HGB Conc 34.1 % (30-36); Mean Corpuscular Hemoglobin 30.6 PG (26-34); Mean Corpuscular Volume 89.7 fL (80-100); Monocytes Absolute Auto 800 /uL (0-900); Monocytes Percent Auto 14.5 % (3-14); Neutrophils Absolute Auto 3800 /uL (1500-7000); Neutrophils Percent Auto 66.9 % (50-75); Platelet Count 282 X10^3/uL (150-400); Red Blood Cell Count 3.22 X10^6/uL (4.5-5.9); Red Cell Distribution Width 15.6 % (11.6-14.8); White Blood Cell Count 5.6 X10^3/uL (4.5-11.0)
[2024-06-23 14:02] LABS: Alanine Aminotransferase 17 IU/L (<50); Albumin 3.5 g/dL (3.5-5.0); Albumin Globulin Ratio 1.3 (1.0-2.8); Alkaline Phosphatase 152 U/L (38-126); Aspartate Aminotransferase 37 IU/L (17-59); BUN Creatinine Ratio 17.8 (6-22); Bilirubin Total 2.5 mg/dL (0.2-1.3); Blood Urea Nitrogen 13 mg/dL (9-20); Calcium 9.1 mg/dL (8.4-10.2); Carbon Dioxide 27 mmol/L (22-32); Chloride 99 mmol/L (98-107); Estimated Glomerular Filt Rate > 60 mL/min (>60); Globulin 2.7 g/dL (1.7-4.1); Glucose 93 mg/dL (80-110); HEMOLYSIS < 15 (0-50); Sodium 132 mmol/L (137-145); Total Protein 6.2 g/dL (6.3-8.2)
[2024-06-23 14:03] LABS: INR 1.8 (0.9-1.3); Prothrombin Time 21.1 SECONDS (9.4-12.5)
[2024-06-23 14:33] LABS: Prostate Specific Antigen 0.204 ng/mL (0.10-4.00)
== END 2024-06-23 13:17 | disposition home or self-care (01) ==
PROVIDERS: Transplant Surgery; PCP Physician Assistant Medical
DX: K72.90 Hepatic failure, unspecified without coma (principal); K70.31 Alcoholic cirrhosis of liver with ascites; Z12.5 Encounter for screening for malignant neoplasm of prostate
CPT/HCPCS: 36415; 49083; 80053; 84153; 85025; 85610; 96365; 96366; P9041

== ENCOUNTER 2024-06-30 07:33 | Outpatient (CLI) | payer BC, SELFPAY ==
[2024-06-30] VITALS (12 sets, daily range): BP systolic 112–140; BP diastolic 58–86; PULSE 62–71; RESP 16–17; TEMP 36.2–36.7; O2SAT 98–100
--- NOTE | 2024-06-30 07:36 | DI.US.S_ITS ---
PROCEDURE: US PARACENTESIS INDICATIONS: ASCITES TECHNIQUE: The indications, alternatives, benefits, risks, and complications of the procedure were explained to the patient. Written informed consent was obtained and placed in the chart. The abdomen and pelvis were examined sonographically, and an appropriate site was chosen for paracentesis. The skin was prepared and draped in the usual sterile fashion, and 1% lidocaine was infiltrated from the skin down through the peritoneal surface. A 19-gauge catheter-covered needle was then introduced into the peritoneal space, the catheter was advanced and the needle was withdrawn, and thereafter peritoneal fluid was withdrawn. The catheter was then removed and a dressing was applied. The fluid was discarded if the clinician did not order diagnostic testing of the fluid. COMPARISON: [facility], PARACENTESIS, 06/23/2024, 10:33. FINDINGS: Access site: Right lower quadrant Needle: One-Step centesis catheter with introducer needle. Fluid volume and description: Clear straw-colored. 6300 cc removed. Fluid sent for diagnostic testing: None. Medications: 1% lidocaine for local anaesthesia. Complications: None. IMPRESSION: Successful ultrasound-guided paracentesis. 6.3 L removed. Dictated by: Amilcar Irene M.D. on 06/30/2024 at 11:08 Approved by: Amilcar Irene M.D. on 06/30/2024 at 11:09
[2024-06-30] MEDS: ALBUMIN HUMAN 50 GM/200 ML VIAL IV (09:34)
== END 2024-06-30 11:20 | disposition home or self-care (01) ==
PROVIDERS: PCP Physician Assistant Medical; Referring Provider Physician Assistant; Visit Provider Physician Assistant
DX: K70.31 Alcoholic cirrhosis of liver with ascites (principal)
CPT/HCPCS: 49083; 96365; 96366; P9041

== ENCOUNTER 2024-07-07 07:39 | Outpatient (CLI) | payer BC, SELFPAY ==
--- NOTE | 2024-07-07 07:40 | DI.US.S_ITS ---
PROCEDURE: US PARACENTESIS INDICATIONS: ASCITES TECHNIQUE: The indications, alternatives, benefits, risks, and complications of the procedure were explained to the patient. Written informed consent was obtained and placed in the chart. The abdomen and pelvis were examined sonographically, and an appropriate site was chosen for paracentesis. The skin was prepared and draped in the usual sterile fashion, and 1% lidocaine was infiltrated from the skin down through the peritoneal surface. A 19-gauge catheter-covered needle was then introduced into the peritoneal space, the catheter was advanced and the needle was withdrawn, and thereafter peritoneal fluid was withdrawn. The catheter was then removed and a dressing was applied. The fluid was discarded if the clinician did not order diagnostic testing of the fluid. COMPARISON: None. FINDINGS: Access site: Right upper quadrant Needle: One-Step centesis catheter with introducer needle. Fluid volume and description: 3900 mL of clear yellow fluid Fluid sent for diagnostic testing: N/A Medications: 1% lidocaine for local anaesthesia. Complications: None. IMPRESSION: Successful ultrasound-guided paracentesis. Dictated by: Wesley Wolf M.D. on 07/07/2024 at 10:34 Approved by: Wesley Wolf M.D. on 07/07/2024 at 10:35
[2024-07-07 08:11] VITALS: BP 137/82; PULSE 70; RESP 17; TEMP 36.6; O2SAT 97
[2024-07-07 08:45] VITALS: BP 125/75; PULSE 65; RESP 17; O2SAT 10
[2024-07-07 09:00] VITALS: BP 128/75; PULSE 65; RESP 17; O2SAT 99
[2024-07-07 09:15] VITALS: BP 126/70; PULSE 67; RESP 17; O2SAT 99
[2024-07-07 09:30] VITALS: BP 121/72; PULSE 67; RESP 16; O2SAT 99
[2024-07-07 09:45] VITALS: BP 129/73; PULSE 68; RESP 17; O2SAT 100
== END 2024-07-07 09:48 | disposition home or self-care (01) ==
PROVIDERS: PCP Physician Assistant Medical; Referring Provider Physician Assistant; Visit Provider Physician Assistant
DX: K70.31 Alcoholic cirrhosis of liver with ascites (principal)
CPT/HCPCS: 49083

== ENCOUNTER 2024-07-14 07:40 | Outpatient (CLI) | payer BC, SELFPAY ==
[2024-07-14] VITALS (13 sets, daily range): BP systolic 115–134; BP diastolic 64–83; PULSE 69–80; RESP 17; TEMP 36.6; O2SAT 98–99
--- NOTE | 2024-07-14 07:41 | DI.US.S_ITS ---
PROCEDURE: US PARACENTESIS INDICATIONS: ASCITES TECHNIQUE: The indications, alternatives, benefits, risks, and complications of the procedure were explained to the patient. Written informed consent was obtained and placed in the chart. The abdomen and pelvis were examined sonographically, and an appropriate site was chosen for paracentesis. The skin was prepared and draped in the usual sterile fashion, and 1% lidocaine was infiltrated from the skin down through the peritoneal surface. A 19-gauge catheter-covered needle was then introduced into the peritoneal space, the catheter was advanced and the needle was withdrawn, and thereafter peritoneal fluid was withdrawn. The catheter was then removed and a dressing was applied. The fluid was discarded if the clinician did not order diagnostic testing of the fluid. COMPARISON: [facility], , PARACENTESIS, 07/07/2024, 8:18. FINDINGS: Access site: Left lower quadrant Needle: One-Step centesis catheter with introducer needle. Fluid volume and description: Clear yellow, 5.9 L Fluid sent for diagnostic testing: No Medications: 1% lidocaine for local anaesthesia. Complications: None. IMPRESSION: Successful ultrasound-guided paracentesis. Dictated by: J Carlos Fox M.D. on 07/14/2024 at 10:22 Approved by: J Carlos Fox M.D. on 07/14/2024 at 10:23
[2024-07-14] MEDS: ALBUMIN HUMAN 50 GM/200 ML VIAL IV (09:00)
== END 2024-07-14 11:00 | disposition home or self-care (01) ==
PROVIDERS: PCP Physician Assistant Medical; Referring Provider Physician Assistant; Visit Provider Physician Assistant
DX: K70.31 Alcoholic cirrhosis of liver with ascites (principal)
CPT/HCPCS: 49083; 96365; 96366; P9041

== ENCOUNTER 2024-07-21 07:36 | Outpatient (CLI) | payer BC, SELFPAY ==
[2024-07-21] VITALS (12 sets, daily range): BP systolic 116–188; BP diastolic 60–84; PULSE 70–77; RESP 16–17; TEMP 36.6–36.8; O2SAT 98–99
--- NOTE | 2024-07-21 07:38 | DI.US.S_ITS ---
PROCEDURE: US PARACENTESIS W/ALBUMIN INDICATIONS: ASCITES TECHNIQUE: The indications, alternatives, benefits, risks, and complications of the procedure were explained to the patient. Written informed consent was obtained and placed in the chart. The abdomen and pelvis were examined sonographically, and an appropriate site was chosen for paracentesis. The skin was prepared and draped in the usual sterile fashion, and 1% lidocaine was infiltrated from the skin down through the peritoneal surface. A 19-gauge catheter-covered needle was then introduced into the peritoneal space, the catheter was advanced and the needle was withdrawn, and thereafter peritoneal fluid was withdrawn. The catheter was then removed and a dressing was applied. The fluid was discarded if the clinician did not order diagnostic testing of the fluid. COMPARISON: None. FINDINGS: Access site: Left lower quadrant Needle: One-Step centesis catheter with introducer needle. Fluid volume and description: 7.8 L clear fluid Fluid sent for diagnostic testing: Not requested Medications: 1% lidocaine for local anaesthesia. Complications: None. IMPRESSION: Successful ultrasound-guided paracentesis. Approved by: German Almendarez M.D. on 07/21/2024 at 12:12
[2024-07-21] MEDS: ALBUMIN HUMAN 50 GM/200 ML VIAL IV (09:20)
== END 2024-07-21 11:07 | disposition home or self-care (01) ==
PROVIDERS: PCP Physician Assistant Medical; Referring Provider Transplant Surgery; Visit Provider Transplant Surgery
DX: K70.31 Alcoholic cirrhosis of liver with ascites (principal)
CPT/HCPCS: 49083; 96365; 96366; P9041

== ENCOUNTER 2024-07-28 07:44 | Outpatient (CLI) | payer BC, SELFPAY ==
[2024-07-28] VITALS (12 sets, daily range): BP systolic 110–141; BP diastolic 63–75; PULSE 72–81; RESP 17; TEMP 36.6; O2SAT 98–99
--- NOTE | 2024-07-28 | DI.US.S_ITS ---
PROCEDURE: US PARACENTESIS W/ALBUMIN INDICATIONS: ASCITES TECHNIQUE: The indications, alternatives, benefits, risks, and complications of the procedure were explained to the patient. Written informed consent was obtained and placed in the chart. The abdomen and pelvis were examined sonographically, and an appropriate site was chosen for paracentesis. The skin was prepared and draped in the usual sterile fashion, and 1% lidocaine was infiltrated from the skin down through the peritoneal surface. A 19-gauge catheter-covered needle was then introduced into the peritoneal space, the catheter was advanced and the needle was withdrawn. 1st attempt did not yield fluid. Ultrasound evaluation demonstrated that the fluid had shifted. A new site was located slightly superior. Anesthesia was administered. A Yueh centesis was inserted and peritoneal fluid was removed. Thereafter peritoneal fluid was withdrawn. The catheter was then removed and a dressing was applied. The fluid was discarded if the clinician did not order diagnostic testing of the fluid. COMPARISON: [facility], PARACENTESIS W/ALBUMIN, 07/21/2024, 8:37. FINDINGS: Access site: Left lower quadrant Needle: One-Step centesis catheter with introducer needle. Fluid volume and description: 6200 cc Fluid sent for diagnostic testing: Straw-colored. None. Medications: 1% lidocaine for local anaesthesia. Complications: None. IMPRESSION: Successful ultrasound-guided therapeutic paracentesis. 6.2 L removed. Dictated by: Amilcar Irene M.D. on 07/28/2024 at 11:46 Approved by: Amilcar Irene M.D. on 07/28/2024 at 11:48
[2024-07-28] MEDS: ALBUMIN HUMAN 50 GM/200 ML VIAL IV (09:22)
== END 2024-07-28 11:10 | disposition home or self-care (01) ==
LOC: US 07:45
PROVIDERS: PCP Physician Assistant Medical; Referring Provider Transplant Surgery; Visit Provider Transplant Surgery
DX: K70.31 Alcoholic cirrhosis of liver with ascites (principal)
CPT/HCPCS: 49083; 96365; 96366; P9041

== ENCOUNTER 2024-08-04 07:28 | Outpatient (CLI) | payer BC, SELFPAY ==
[2024-08-04] VITALS (12 sets, daily range): BP systolic 122–144; BP diastolic 60–83; PULSE 63–70; RESP 16–17; TEMP 36.6; O2SAT 98–99
--- NOTE | 2024-08-04 07:29 | DI.US.S_ITS ---
PROCEDURE: US PARACENTESIS W/ALBUMIN INDICATIONS: ASCITES TECHNIQUE: The indications, alternatives, benefits, risks, and complications of the procedure were explained to the patient. Written informed consent was obtained and placed in the chart. The abdomen and pelvis were examined sonographically, and an appropriate site was chosen for paracentesis. The skin was prepared and draped in the usual sterile fashion, and 1% lidocaine was infiltrated from the skin down through the peritoneal surface. A 19-gauge catheter-covered needle was then introduced into the peritoneal space, the catheter was advanced and the needle was withdrawn, and thereafter peritoneal fluid was withdrawn. The catheter was then removed and a dressing was applied. The fluid was discarded if the clinician did not order diagnostic testing of the fluid. COMPARISON: [facility], PARACENTESIS W/ALBUMIN, 07/28/2024, 8:12. [facility], PARACENTESIS W/ALBUMIN, 07/21/2024, 8:37. FINDINGS: Access site: Left lower quadrant Needle: One-Step centesis catheter with introducer needle. Fluid volume and description: 6.3 liters of clear yellow fluid Fluid sent for diagnostic testing: No Medications: 1% lidocaine for local anaesthesia. Complications: None. IMPRESSION: Successful ultrasound-guided paracentesis. Dictated by: Ulysses Rivas M.D. on 08/04/2024 at 10:49 Approved by: Ulysses Rivas M.D. on 08/04/2024 at 10:50
[2024-08-04] MEDS: ALBUMIN HUMAN 50 GM/200 ML VIAL IV (09:08)
[2024-08-04 12:14] LABS: Creatinine, Serum (CRCL) 0.95 mg/dL (0.66-1.25)
[2024-08-04 12:16] LABS: BUN Creatinine Ratio 18.3 (6-22); Blood Urea Nitrogen 17 mg/dL (9-20); Calcium 9.6 mg/dL (8.4-10.2); Carbon Dioxide 27 mmol/L (22-32); Chloride 101 mmol/L (98-107); Estimated Glomerular Filt Rate > 60 mL/min (>60); Glucose 92 mg/dL (80-110); HEMOLYSIS < 15 (0-50); Potassium 3.4 mmol/L (3.4-5.1); Sodium 136 mmol/L (137-145)
[2024-08-04 12:29] LABS: Collection Time Urine 24 Hours; Creat Clearance, Corrected 72.1 mL/MIN; Creatinine Clearance Urine 79.2 mL/MIN; Creatinine Urine Random 64.15 mg/dL; Patient Height Urine 70 inches; Patient Weight Urine 162 lbs; Protein (Total) Urine Random 11 mg/dL (0-12); Total Protein 24 Hour Urine 186 mg/day (42-225); Total Volume Urine 1690 mL
== END 2024-08-04 10:58 | disposition home or self-care (01) ==
PROVIDERS: PCP Physician Assistant Medical; Referring Provider Transplant Surgery; Visit Provider Transplant Surgery
DX: K70.31 Alcoholic cirrhosis of liver with ascites (principal)
CPT/HCPCS: 36415; 49083; 80048; 82575; 84156; 96365; 96366; P9041

== ENCOUNTER 2024-08-11 07:26 | Outpatient (CLI) | payer BC, SELFPAY ==
--- NOTE | 2024-08-11 07:28 | DI.US.S_ITS ---
PROCEDURE: US PARACENTESIS W/ALBUMIN INDICATIONS: ASCITES TECHNIQUE: The indications, alternatives, benefits, risks, and complications of the procedure were explained to the patient. Written informed consent was obtained and placed in the chart. The abdomen and pelvis were examined sonographically, and an appropriate site was chosen for paracentesis. The skin was prepared and draped in the usual sterile fashion, and 1% lidocaine was infiltrated from the skin down through the peritoneal surface. A 19-gauge catheter-covered needle was then introduced into the peritoneal space, the catheter was advanced and the needle was withdrawn, and thereafter peritoneal fluid was withdrawn. The catheter was then removed and a dressing was applied. The fluid was discarded if the clinician did not order diagnostic testing of the fluid. COMPARISON: [facility], PARACENTESIS W/ALBUMIN, 08/04/2024, 8:16. FINDINGS: Access site: Right lower quadrant Needle: One-Step centesis catheter with introducer needle. Fluid volume and description: 4.3L clear yellow Fluid sent for diagnostic testing: None Medications: 1% lidocaine for local anaesthesia. Complications: None. IMPRESSION: Successful ultrasound-guided paracentesis. Dictated by: Mary Lou Gonzalez M.D. on 08/12/2024 at 9:56 Approved by: Mary Lou Gonzalez M.D. on 08/12/2024 at 9:57
[2024-08-11 07:58] VITALS: BP 153/77; PULSE 70; RESP 17; TEMP 36.6; O2SAT 100
[2024-08-11 08:45] VITALS: BP 135/73; PULSE 71; RESP 17; O2SAT 100
[2024-08-11 09:00] VITALS: BP 123/74; PULSE 69; RESP 17; O2SAT 99
[2024-08-11 09:15] VITALS: BP 127/77; PULSE 68; RESP 17; O2SAT 100
[2024-08-11 09:26] VITALS: BP 134/79; PULSE 68; RESP 17; TEMP 36.6; O2SAT 100
== END 2024-08-11 09:31 | disposition home or self-care (01) ==
PROVIDERS: PCP Physician Assistant Medical; Referring Provider Transplant Surgery; Visit Provider Transplant Surgery
DX: K70.31 Alcoholic cirrhosis of liver with ascites (principal)
CPT/HCPCS: 49083

== ENCOUNTER 2024-08-18 07:50 | Outpatient (CLI) | payer BC, SELFPAY ==
[2024-08-18 08:19] VITALS: BP 147/86; PULSE 70; RESP 17; TEMP 36.6; O2SAT 100
[2024-08-18 08:26] LABS: Hematocrit 33.1 % (41-53); Hemoglobin 11.1 g/dL (13.5-17.5); Mean Corpuscular HGB Conc 33.4 % (30-36); Mean Corpuscular Hemoglobin 28.9 PG (26-34); Mean Corpuscular Volume 86.3 fL (80-100); Platelet Count 227 X10^3/uL (150-400); Red Blood Cell Count 3.84 X10^6/uL (4.5-5.9); Red Cell Distribution Width 16.3 % (11.6-14.8); White Blood Cell Count 4.9 X10^3/uL (4.5-11.0)
[2024-08-18 08:35] LABS: INR 1.4 (0.9-1.3)
--- NOTE | 2024-08-18 08:42 | DI.US.S_ITS ---
PROCEDURE: US PARACENTESIS INDICATIONS: ASCITES TECHNIQUE: The indications, alternatives, benefits, risks, and complications of the procedure were explained to the patient. Written informed consent was obtained and placed in the chart. The abdomen and pelvis were examined sonographically, and an appropriate site was chosen for paracentesis. The skin was prepared and draped in the usual sterile fashion, and 1% lidocaine was infiltrated from the skin down through the peritoneal surface. A 19-gauge catheter-covered needle was then introduced into the peritoneal space, the catheter was advanced and the needle was withdrawn, and thereafter peritoneal fluid was withdrawn. The catheter was then removed and a dressing was applied. The fluid was discarded if the clinician did not order diagnostic testing of the fluid. COMPARISON: [facility], , PARACENTESIS, 07/14/2024, 8:14. FINDINGS: Access site: Right lower quadrant Needle: One-Step centesis catheter with introducer needle. Fluid volume and description: 3.4 L of cloudy yellowish fluid. Fluid sent for diagnostic testing: None Medications: 1% lidocaine for local anaesthesia. Complications: None. IMPRESSION: Successful ultrasound-guided paracentesis. Dictated by: Alberto Coyle M.D. on 08/18/2024 at 10:10 Approved by: Alberto Coyle M.D. on 08/18/2024 at 10:10
[2024-08-18 09:00] VITALS: BP 128/70; PULSE 71; RESP 17; O2SAT 100
[2024-08-18 09:15] VITALS: BP 127/75; PULSE 71; RESP 17; O2SAT 100
[2024-08-18 09:30] VITALS: BP 127/75; PULSE 70; RESP 17; O2SAT 100
[2024-08-18 09:45] VITALS: BP 129/65; PULSE 71; RESP 17; TEMP 36.6; O2SAT 100
== END 2024-08-18 09:50 | disposition home or self-care (01) ==
LOC: US 07:52
PROVIDERS: Physician Assistant; PCP Physician Assistant Medical; Referring Provider Transplant Surgery; Visit Provider Transplant Surgery
DX: K70.31 Alcoholic cirrhosis of liver with ascites (principal)
CPT/HCPCS: 49083; 85027; 85610

== ENCOUNTER 2024-09-01 07:25 | Outpatient (CLI) | payer BC, SELFPAY ==
[2024-09-01] VITALS (11 sets, daily range): BP systolic 110–139; BP diastolic 57–73; PULSE 65–75; RESP 17; TEMP 36.8; O2SAT 98–99
--- NOTE | 2024-09-01 | DI.US.S_ITS ---
PROCEDURE: US PARACENTESIS W/ALBUMIN INDICATIONS: ASCITES TECHNIQUE: The indications, alternatives, benefits, risks, and complications of the procedure were explained to the patient. Written informed consent was obtained and placed in the chart. The abdomen and pelvis were examined sonographically, and an appropriate site was chosen for paracentesis. The skin was prepared and draped in the usual sterile fashion, and 1% lidocaine was infiltrated from the skin down through the peritoneal surface. A 19-gauge catheter-covered needle was then introduced into the peritoneal space, the catheter was advanced and the needle was withdrawn, and thereafter peritoneal fluid was withdrawn. The catheter was then removed and a dressing was applied. The fluid was discarded if the clinician did not order diagnostic testing of the fluid. COMPARISON: [facility], PARACENTESIS W/ALBUMIN, 08/11/2024, 8:37. FINDINGS: Access site: Right lower quadrant Needle: One-Step centesis catheter with introducer needle. Fluid volume and description: 7200 clear fluid Fluid sent for diagnostic testing: No Medications: 1% lidocaine for local anaesthesia. Complications: None. IMPRESSION: Successful ultrasound-guided paracentesis. Dictated by: Jorge Vega M.D. on 09/01/2024 at 15:18 Approved by: Jorge Vega M.D. on 09/01/2024 at 15:19
[2024-09-01] MEDS: ALBUMIN HUMAN 50 GM/200 ML VIAL IV (09:18)
== END 2024-09-01 11:07 | disposition home or self-care (01) ==
LOC: US 07:25
PROVIDERS: PCP Physician Assistant Medical; Referring Provider Transplant Surgery; Visit Provider Transplant Surgery
DX: K70.31 Alcoholic cirrhosis of liver with ascites (principal)
CPT/HCPCS: 49083; 96365; 96366; P9041

== ENCOUNTER 2024-09-15 07:30 | Outpatient (CLI) | payer BC, SELFPAY ==
[2024-09-15] VITALS (11 sets, daily range): BP systolic 116–140; BP diastolic 64–74; PULSE 58–61; RESP 17; TEMP 36.6–36.8; O2SAT 99–100
--- NOTE | 2024-09-15 | DI.US.S_ITS ---
PROCEDURE: US PARACENTESIS W/ALBUMIN INDICATIONS: Alcoholic cirrhosis of liver with ascites TECHNIQUE: The indications, alternatives, benefits, risks, and complications of the procedure were explained to the patient. Written informed consent was obtained and placed in the chart. The abdomen and pelvis were examined sonographically, and an appropriate site was chosen for paracentesis. The skin was prepared and draped in the usual sterile fashion, and 1% lidocaine was infiltrated from the skin down through the peritoneal surface. A 19-gauge catheter-covered needle was then introduced into the peritoneal space, the catheter was advanced and the needle was withdrawn, and thereafter peritoneal fluid was withdrawn. The catheter was then removed and a dressing was applied. The fluid was discarded if the clinician did not order diagnostic testing of the fluid. COMPARISON: [facility], PARACENTESIS W/ALBUMIN, 09/01/2024, 8:47. [facility], PARACENTESIS W/ALBUMIN, 08/11/2024, 8:37. FINDINGS: Access site: Left lower quadrant Needle: One-Step centesis catheter with introducer needle. Fluid volume and description: 6.5 L clear yellow fluid Fluid sent for diagnostic testing: Not requested Medications: 1% lidocaine for local anaesthesia. Complications: None. IMPRESSION: Successful ultrasound-guided paracentesis. Approved by: German Almendarez M.D. on 09/15/2024 at 11:31
[2024-09-15] MEDS: ALBUMIN HUMAN 50 GM/200 ML VIAL IV (08:55)
== END 2024-09-15 10:48 | disposition home or self-care (01) ==
PROVIDERS: PCP Physician Assistant Medical; Referring Provider Transplant Surgery; Visit Provider Transplant Surgery
DX: K70.31 Alcoholic cirrhosis of liver with ascites (principal)
CPT/HCPCS: 49083; 96365; 96366; P9041

== ENCOUNTER 2024-09-29 07:26 | Outpatient (CLI) | payer BC, SELFPAY ==
--- NOTE | 2024-09-29 | DI.US.S_ITS ---
PROCEDURE: US PARACENTESIS INDICATIONS: Other ascites TECHNIQUE: The indications, alternatives, benefits, risks, and complications of the procedure were explained to the patient. Written informed consent was obtained and placed in the chart. The abdomen and pelvis were examined sonographically, and an appropriate site was chosen for paracentesis. The skin was prepared and draped in the usual sterile fashion, and 1% lidocaine was infiltrated from the skin down through the peritoneal surface. A 19-gauge catheter-covered needle was then introduced into the peritoneal space, the catheter was advanced and the needle was withdrawn, and thereafter peritoneal fluid was withdrawn. The catheter was then removed and a dressing was applied. The fluid was discarded if the clinician did not order diagnostic testing of the fluid. COMPARISON: [facility], PARACENTESIS, 08/18/2024, 8:45. FINDINGS: Access site: Right lower quadrant Needle: One-Step centesis catheter with introducer needle. Fluid volume and description: 4.3 L clear, yellow fluid Fluid sent for diagnostic testing: None Medications: 1% lidocaine for local anaesthesia. Complications: None. IMPRESSION: Successful ultrasound-guided paracentesis. Dictated by: Jose Sauceda M.D. on 09/29/2024 at 11:50 Approved by: Jose Sauceda M.D. on 09/29/2024 at 11:50
[2024-09-29 08:08] VITALS: BP 123/92; PULSE 63; RESP 17; TEMP 36.8; O2SAT 99
[2024-09-29 08:18] LABS: Hematocrit 31.1 % (41-53); Hemoglobin 10.3 g/dL (13.5-17.5); Mean Corpuscular HGB Conc 33.2 % (30-36); Mean Corpuscular Hemoglobin 27.8 PG (26-34); Mean Corpuscular Volume 83.7 fL (80-100); Platelet Count 224 X10^3/uL (150-400); Red Blood Cell Count 3.71 X10^6/uL (4.5-5.9); Red Cell Distribution Width 15.8 % (11.6-14.8); White Blood Cell Count 4.6 X10^3/uL (4.5-11.0)
[2024-09-29 08:25] LABS: INR 1.4 (0.9-1.3); Prothrombin Time 16.2 SECONDS (9.4-12.5)
[2024-09-29 08:26] VITALS: BP 128/64; PULSE 60; RESP 17; O2SAT 98
[2024-09-29 08:41] VITALS: BP 125/60; PULSE 60; RESP 17; O2SAT 99
[2024-09-29 08:56] VITALS: BP 116/64; PULSE 62; RESP 17; O2SAT 98
[2024-09-29 09:11] VITALS: BP 115/65; PULSE 62; RESP 17; TEMP 36.6; O2SAT 99
--- NOTE | 2024-11-11 10:14 | PC.NURSE ---
2 hours of albumin infusion for paracentesis on 09/29/24. Cannot back date it.
== END 2024-09-29 09:19 | disposition home or self-care (01) ==
LOC: US 07:27
PROVIDERS: PCP Physician Assistant Medical; Referring Provider Transplant Surgery; Visit Provider Transplant Surgery
DX: K70.31 Alcoholic cirrhosis of liver with ascites (principal)
CPT/HCPCS: 49083; 85027; 85610; 96365; 96366; P9041

== ENCOUNTER 2024-10-13 07:16 | Outpatient (CLI) | payer BC, SELFPAY ==
[2024-10-13] VITALS (11 sets, daily range): BP systolic 119–139; BP diastolic 63–73; PULSE 59–70; RESP 17; TEMP 36.6; O2SAT 99
--- NOTE | 2024-10-13 | DI.US.S_ITS ---
PROCEDURE: US PARACENTESIS W/ALBUMIN INDICATIONS: ASCITES TECHNIQUE: The indications, alternatives, benefits, risks, and complications of the procedure were explained to the patient. Written informed consent was obtained and placed in the chart. The abdomen and pelvis were examined sonographically, and an appropriate site was chosen for paracentesis. The skin was prepared and draped in the usual sterile fashion, and 1% lidocaine was infiltrated from the skin down through the peritoneal surface. A 5 Thai catheter-covered needle was then introduced into the peritoneal space, the catheter was advanced and the needle was withdrawn, and thereafter peritoneal fluid was withdrawn. The catheter was then removed and a dressing was applied. The fluid was discarded if the clinician did not order diagnostic testing of the fluid. COMPARISON: [facility], PARACENTESIS W/ALBUMIN, 09/15/2024, 8:32. FINDINGS: Access site: Left mid abdomen Needle: One-Step centesis catheter with introducer needle. Fluid volume and description: 6,150 cc Fluid sent for diagnostic testing: None Medications: 1% lidocaine for local anaesthesia. Complications: None. IMPRESSION: Successful ultrasound-guided paracentesis. Dictated by: Ankur Randhawa M.D. on 10/13/2024 at 11:36 Approved by: Ankur Randhawa M.D. on 10/13/2024 at 11:39
[2024-10-13] MEDS: ALBUMIN HUMAN 50 GM/200 ML VIAL IV (09:20)
== END 2024-10-13 11:10 | disposition home or self-care (01) ==
PROVIDERS: PCP Physician Assistant Medical; Visit Provider Radiology Diagnostic Radiology
DX: K70.31 Alcoholic cirrhosis of liver with ascites (principal)
CPT/HCPCS: 49083; 96365; 96366; P9041

== ENCOUNTER 2024-10-27 07:21 | Outpatient (CLI) | payer BC, SELFPAY ==
[2024-10-27] VITALS (7 sets, daily range): BP systolic 123–139; BP diastolic 60–79; PULSE 60–65; RESP 17; TEMP 36.6; O2SAT 98–99
--- NOTE | 2024-10-27 | DI.US.S_ITS ---
PROCEDURE: US PARACENTESIS W/ALBUMIN INDICATIONS: Alcoholic cirrhosis of liver with ascites TECHNIQUE: The indications, alternatives, benefits, risks, and complications of the procedure were explained to the patient. Written informed consent was obtained and placed in the chart. The abdomen and pelvis were examined sonographically, and an appropriate site was chosen for paracentesis. The skin was prepared and draped in the usual sterile fashion, and 1% lidocaine was infiltrated from the skin down through the peritoneal surface. A 19-gauge catheter-covered needle was then introduced into the peritoneal space, the catheter was advanced and the needle was withdrawn, and thereafter peritoneal fluid was withdrawn. The catheter was then removed and a dressing was applied. The fluid was discarded if the clinician did not order diagnostic testing of the fluid. COMPARISON: [facility], , PARACENTESIS W/ALBUMIN, 10/13/2024, 8:35. FINDINGS: Access site: Right lower quadrant Needle: One-Step centesis catheter with introducer needle. Fluid volume and description: 5.8 L, clear/yellow Fluid sent for diagnostic testing: No Medications: 1% lidocaine for local anaesthesia. Complications: None. IMPRESSION: Successful ultrasound-guided paracentesis. Dictated by: J Carlos Fox M.D. on 10/27/2024 at 10:55 Approved by: J Carlos Fox M.D. on 10/27/2024 at 10:56
[2024-10-27 08:15] LABS: Hematocrit 31.7 % (41-53); Hemoglobin 10.5 g/dL (13.5-17.5); Mean Corpuscular HGB Conc 33.3 % (30-36); Mean Corpuscular Hemoglobin 27.3 PG (26-34); Mean Corpuscular Volume 82.1 fL (80-100); Platelet Count 230 X10^3/uL (150-400); Red Blood Cell Count 3.86 X10^6/uL (4.5-5.9); Red Cell Distribution Width 15.9 % (11.6-14.8); White Blood Cell Count 5.1 X10^3/uL (4.5-11.0)
[2024-10-27 08:22] LABS: INR 1.4 (0.9-1.3); Prothrombin Time 15.7 SECONDS (9.4-12.5)
[2024-10-27 08:28] LABS: Alanine Aminotransferase 19 IU/L (<50); Albumin 3.4 g/dL (3.5-5.0); Albumin Globulin Ratio 1.1 (1.0-2.8); Alkaline Phosphatase 204 U/L (38-126); Aspartate Aminotransferase 42 IU/L (17-59); BUN Creatinine Ratio 13.9 (6-22); Bilirubin Total 2.2 mg/dL (0.2-1.3); Blood Urea Nitrogen 15 mg/dL (9-20); Calcium 9.2 mg/dL (8.4-10.2); Carbon Dioxide 27 mmol/L (22-32); Chloride 99 mmol/L (98-107); Estimated Glomerular Filt Rate > 60 mL/min (>60); Globulin 3.2 g/dL (1.7-4.1); Glucose 97 mg/dL (80-110); HEMOLYSIS < 15 (0-50); Sodium 133 mmol/L (137-145); Total Protein 6.6 g/dL (6.3-8.2)
[2024-10-27 08:39] LABS: Potassium 2.6 mmol/L (3.4-5.1)
[2024-10-27] MEDS: ALBUMIN HUMAN 50 GM/200 ML VIAL IV (09:10)
[2024-10-27 09:26] LABS: HEMOLYSIS < 15 (0-50)
[2024-10-27 09:32] LABS: Potassium 2.6 mmol/L (3.4-5.1)
--- NOTE | 2024-10-27 10:10 | PC.NURSE ---
Pt's PCP labs drawn with outpatient paracentesis admission resulted with critical low potassium of 2.6. Repeat draw performed by lab 2.6. Dr. Fox notified and per protocol, pt taken to ED. Dr. Smyth's office notified. VSS, no complaints, Albumin infusion running via pump. Pt's mother brought to ED bedside. Pt aware of POC, NAD.
== END 2024-10-27 09:56 | disposition admitted as inpatient to this hospital (09) ==
LOC: US 07:21
PROVIDERS: Radiology Diagnostic Radiology; PCP Physician Assistant Medical
DX: K70.31 Alcoholic cirrhosis of liver with ascites (principal)
CPT/HCPCS: 49083; 80053; 84132; 85027; 85610; 96365; 96366; P9041

== ENCOUNTER 2024-10-27 09:59 | Emergency (ER) | payer BC, SELFPAY ==
[2024-10-27 10:01] VITALS: BP 138/75; PULSE 62; RESP 19; TEMP 36.9; O2SAT 99; BMI 25.0
--- NOTE | 2024-10-27 10:06 | EKG_ITS ---
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
[2024-10-27 10:08] VITALS: BP 138/75; PULSE 60; O2SAT 99
--- NOTE | 2024-10-27 10:18 | ED.RECABL ---
HPI - Recheck/Abnormal Lab/Rx General Chief Complaint: Recheck/Abnormal Lab/Rx Stated Complaint: Per patient Low potassium Time Seen by Provider: 10/27/24 10:18 Source: patient and other Mode of arrival: Ambulatory Limitations: no limitations History of Present Illness HPI narrative: 59-year-old male with a history of alcoholic cirrhosis and recurrent ascites has by weekly paracentesis was at his usual appointment for paracentesis had outpatient labs drawn and was found to be hypokalemic. They did redraw and recent and was persistently low at. Patient states last drink was July of 2023, has been referred to [facility] did discuss transplant Services is following with primary care is on Lasix 40 mg daily, spironolactone 25 mg twice daily and metoprolol extended release 25 mg daily. 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 His primary care doc checks his labs monthly med he has had low sodium in March but otherwise appropriate potassium. Patient denies any complaints today. Denies any other symptoms no chest pain no shortness of breath no nausea or vomiting no issues with bowel movements no diarrhea. No new urinary symptoms. States paracentesis has been doing well they took off 5.8 L today. He was supposed to follow up as he has had a little bit of an umbilical hernia that is worsened when his ascites is exacerbated. Patient states no known drug allergies no tobacco, has been sober since July [address] Smyth is his primary care physician. [place] [facility] and sees [facility] for some primary care. Related Data Home Medications Medication Instructions Recorded Confirmed furosemide 40 mg tablet (Lasix) 40 mg PO DAILY Liver/Fliids 05/16/24 05/28/24 hydrocortisone 2.5 % rectal cream 2.5 ea ND DAILY PRN 05/16/24 05/16/24 with applicator metoprolol succinate 25 mg 25 mg PO DAILY 05/16/24 05/28/24 tablet,extended release 24 hr pantoprazole 40 mg tablet,delayed 40 mg PO DAILY 05/16/24 05/16/24 release spironolactone 25 mg tablet 25 mg PO BID 05/16/24 05/28/24 zinc sulfate 50 mg zinc (220 mg) 50 mg PO DAILY 05/16/24 05/16/24 capsule Previous Rx's Medication Instructions Recorded metoprolol succinate 25 mg 25 mg PO DAILY #30 tabs 07/14/24 tablet,extended release 24 hr potassium chloride 20 mEq 40 meq (2 x 20 mEq) PO DAILY #2 10/27/24 tablet,extended release(part/cryst) tabs Allergies Allergy/AdvReac Type Severity Reaction Status Date / Time No Known Drug Allergies Allergy Verified 10/27/24 10:14 Review of Systems Review of Systems ROS Unobtainable: All systems reviewed & are unremarkable except as noted in HPI and below Patient History Medical History Sleep apnea (~2018) Mumps Measles Chicken pox Liver disease (~2022) Cirrhosis (~2022) Hypertension (~1999) Surgical History Anesthesia History of surgery Family History Father History of heart disease Social History Smoking Status: Never smoker Smoking Status: Never smoker alcohol intake frequency: other Exam Narrative Exam Narrative: GENERAL: Alert and oriented x three, male in mild distress HEENT: Head normocephalic, atraumatic, EOMI, pupils reactive, face symmetric, moist mucous membranes NECK: Supple, full range of motion CARDIOVASCULAR: Regular rate and rhythm without murmurs, rubs or gallops. RESPIRATORY: Breath sounds equal bilaterally, no wheezes rales or rhonchi. ABDOMEN: Soft, nontender, mildly distended, umbilicus is mildly distended but easily reducible. Has bandage his paracentesis site with no drainage no erythema. Normoactive bowel sounds all 4 quadrants. No guarding or rebound, rigidity, no mass : No CVA tenderness EXTREMITIES: Normal range of motion, no clubbing or edema. Neurovascularly intact NEUROLOGICAL: Cranial nerves II through XII grossly intact. Moving all extremities SKIN: Warm, dry, no petechiae, no rashes or lesions. Initial Vital Signs Initial Vital Signs: Vital Signs Temperature 98.5 F 10/27/24 10:01 Pulse Rate 62 10/27/24 10:01 Respiratory Rate 19 10/27/24 10:01 Blood Pressure 138/75 10/27/24 10:01 Pulse Oximetry 99 10/27/24 10:01 Oxygen Delivery Method Room Air 10/27/24 10:01 Course Orders Ordered: ED Orders 10/27/24 10:27 EKG-12 Lead Stat Discontinued Medications Potassium Chloride (Potassium Chloride 20 Meq Tab) 40 meq PO NOW ONE Stop: 10/27/24 10:28 Last Admin: 10/27/24 10:35 Dose: 40 meq Documented By: RB Potassium Chloride (Potassium Chloride 20 Meq Tab) 40 meq PO NOW ONE Stop: 10/27/24 11:14 Last Admin: 10/27/24 11:25 Dose: 40 meq Documented By: RB Vital Signs Vital signs: Vital Signs - 8 hr 10/27/24 11:00 10/27/24 11:00 Pulse Rate 63 Respiratory Rate 21 Blood Pressure 137/65 Pulse Oximetry 99 MDM - Recheck/Abnormal Lab/Rx ECG Data Attestation: I personally reviewed and interpreted this ECG as follows: Prior ECG tracings: not available for review Interpretation: Sinus rhythm with frequent PVCs rate of 66 ND 162 QRS of 114 QTC of 507. No prior for comparison MDM Narrative Medical decision making narrative: 59-year-old male presents after having outpatient labs drawn during paracentesis patient had 5.8 L with albumin infused which he has been doing twice weekly. He is currently asymptomatic but outpatient labs showed anemia which is stable, white count of 5.1 and platelets of 230. Sodium is 133 consistent with priors over the past several months potassium was 2.6 and on redraw with a new tech and new vial of blood patient's repeat is 2.6 as well chloride, CO2 BUN and creatinine are otherwise appropriate bilirubin is 2.2 AST ALT are appropriate with a alk-phos of 204. EKG shows sinus rhythm frequent PVCs. Patient had oral dose of potassium here plan to have patient take an additional dose this evening and 1 additional dose the following day. He has not had persistently low potassium but is on Lasix as well as potassium-sparing diuretic so asked him to have his labs rechecked in the next week with primary care. Discussed return precautions all questions answered. Discharge Plan Departure Patient Disposition: Home Clinical Impression: Hypokalemia Instructions: DI for Hypokalemia Activity Restrictions/Additional Instructions: Your potassium today was low at 2.6 on redraw was persistently low you have been given a dose of oral potassium here in the department please take the additional dose of oral potassium this evening. A prescription was sent to [facility] for 1 additional dose to take tomorrow. Please follow up with your physician in the next week to have your labs redrawn to make sure your potassium has normalized. Please return if you have any new symptoms, chest pain, shortness of breath, abdominal pain, redness or swelling at your puncture site for your paracentesis, lightheadedness or passing out, persistent vomiting, diarrhea or other new or concerning changes. Prescriptions: New potassium chloride 20 mEq tablet,ER particles/crystals 40 meq PO DAILY Qty: 2 0RF No Action metoprolol succinate 25 mg tablet extended release 24 hr 25 mg PO DAILY Qty: 30 0RF furosemide [Lasix] 40 mg tablet 40 mg PO DAILY metoprolol succinate 25 mg tablet extended release 24 hr 25 mg PO DAILY zinc sulfate 50 mg zinc (220 mg) capsule 50 mg PO DAILY spironolactone 25 mg tablet 25 mg PO BID pantoprazole 40 mg tablet,delayed release (DR/EC) 40 mg PO DAILY hydrocortisone 2.5 % cream with applicator 2.5 ea ND DAILY PRN Referrals: Kenna Jon PA-C [[facility]] - Stand Alone Forms: Patient Portal/API/Survey
[2024-10-27 10:30] VITALS: BP 132/61; PULSE 63; RESP 16; O2SAT 99
[2024-10-27] MEDS: POTASSIUM CHLORIDE 20 MEQ TAB 40 MEQ PO ×2 (10:35→11:25)
[2024-10-27 11:00] VITALS: BP 137/65; PULSE 63; RESP 21; O2SAT 99
--- NOTE | 2024-10-27 11:03 | PC.NURSE ---
the Albumin that was started in diagnostic imaging is complete. Patient tolerated the infusion well and no witnessed or reported side effects from patient.
== END 2024-10-27 11:36 | disposition home or self-care (01) ==
PROVIDERS: Emergency Provider Emergency Medicine
DX: E87.6 Hypokalemia (principal); I49.3 Ventricular premature depolarization; K70.31 Alcoholic cirrhosis of liver with ascites
CPT/HCPCS: 49083; 80053; 84132; 85027; 85610; 93005; 96365; 96366; 99283; P9041

== ENCOUNTER → 2024-10-29 12:26 | Outpatient (CLI) | payer BC, SELFPAY ==
--- NOTE | 2024-10-29 12:29 | DI.US.S_ITS ---
PROCEDURE: US SCROTUM INDICATIONS: SCROTAL MASS TECHNIQUE: Real-time scanning was performed of the scrotum and testicles, with image documentation. Color and pulse Doppler interrogation was performed of both testicles. COMPARISON: None. FINDINGS: Right: Testicle is normal in size at 3.8 x 1.8 x 2.7 cm, and homogenous in echotexture. Epididymis is normal in overall size and morphology. No hydrocele or varicoceles. Overlying scrotal skin is normal in thickness. Left: Testicle is normal in size at 3.6 x 1.8 x 3.5 cm, and homogeneous in echotexture. Epididymis is normal in overall size and morphology. No hydrocele . Mild left-sided varicoceles is seen measures up to 2.4 millimeters in diameter. Overlying scrotal skin is normal in thickness. Doppler: Color and pulse Doppler demonstrate normal and symmetric arterial flow in both testicles. 17.8 x 3.8 x 7.4 cm fluid collection is noted within left inguinal canal and appears to be communicating with the peritoneal space. IMPRESSION: 1. No abnormality is seen in bilateral testes or epididymi. No hydroceles. Very mild left-sided varicoceles. 2. Fluid collection seen within left inguinal canal as described above and likely communicating with peritoneal space suggestive of ascites fluid extension to this area. No discrete soft tissue mass is seen. Dictated by: Alberto Coyle M.D. on 10/31/2024 at 10:58 Approved by: Alberto Coyle M.D. on 10/31/2024 at 10:59
== END ==
LOC: US 12:27
PROVIDERS: PCP Student in an Organized Health Care Education/Training Program; Referring Provider Student in an Organized Health Care Education/Training Program; Visit Provider Student in an Organized Health Care Education/Training Program
DX: N50.89 Other specified disorders of the male genital organs (principal)
CPT/HCPCS: 76870

== ENCOUNTER → 2024-11-05 13:30 | Outpatient (CLI) | payer BC, SELFPAY ==
[2024-11-05 22:10] LABS: Alanine Aminotransferase 17 IU/L (<50); Albumin 3.4 g/dL (3.5-5.0); Albumin Globulin Ratio 1.1 (1.0-2.8); Alkaline Phosphatase 202 U/L (38-126); Aspartate Aminotransferase 81 IU/L (17-59); BUN Creatinine Ratio 14.4 (6-22); Bilirubin Total 1.6 mg/dL (0.2-1.3); Blood Urea Nitrogen 15 mg/dL (9-20); Calcium 9.3 mg/dL (8.4-10.2); Carbon Dioxide 30 mmol/L (22-32); Chloride 101 mmol/L (98-107); Estimated Glomerular Filt Rate > 60 mL/min (>60); Globulin 3.2 g/dL (1.7-4.1); Glucose 168 mg/dL (80-110); HEMOLYSIS 17 (0-50); Potassium 2.8 mmol/L (3.4-5.1); Sodium 136 mmol/L (137-145); Total Protein 6.6 g/dL (6.3-8.2)
== END ==
PROVIDERS: PCP Student in an Organized Health Care Education/Training Program; Visit Provider Physician Assistant Medical
DX: E87.6 Hypokalemia (principal)
CPT/HCPCS: 80053

== ENCOUNTER 2024-11-10 07:19 | Outpatient (CLI) | payer BC, SELFPAY ==
[2024-11-10] VITALS (11 sets, daily range): BP systolic 115–149; BP diastolic 65–78; PULSE 60–65; RESP 16–17; TEMP 36.7; O2SAT 98–100
--- NOTE | 2024-11-10 07:33 | DI.US.S_ITS ---
PROCEDURE: US PARACENTESIS W/ALBUMIN INDICATIONS: ROUTINE TECHNIQUE: The indications, alternatives, benefits, risks, and complications of the procedure were explained to the patient. Written informed consent was obtained and placed in the chart. The abdomen and pelvis were examined sonographically, and an appropriate site was chosen for paracentesis. The skin was prepared and draped in the usual sterile fashion, and 1% lidocaine was infiltrated from the skin down through the peritoneal surface. A 19-gauge catheter-covered needle was then introduced into the peritoneal space, the catheter was advanced and the needle was withdrawn, and thereafter peritoneal fluid was withdrawn. The catheter was then removed and a dressing was applied. The fluid was discarded if the clinician did not order diagnostic testing of the fluid. COMPARISON: [facility], PARACENTESIS W/ALBUMIN, 10/27/2024, 8:21. FINDINGS: Access site: Right lower quadrant Needle: One-Step centesis catheter with introducer needle. Fluid volume and description: 5.4 liters, clear Fluid sent for diagnostic testing: No Medications: 1% lidocaine for local anaesthesia. Complications: None. IMPRESSION: Successful ultrasound-guided paracentesis. Dictated by: Jorge Vega M.D. on 11/10/2024 at 14:12 Approved by: Jorge Vega M.D. on 11/10/2024 at 14:12
[2024-11-10] MEDS: ALBUMIN HUMAN 50 GM/200 ML VIAL IV (09:05)
== END 2024-11-10 11:00 | disposition home or self-care (01) ==
PROVIDERS: PCP Student in an Organized Health Care Education/Training Program; Referring Provider Student in an Organized Health Care Education/Training Program; Visit Provider Student in an Organized Health Care Education/Training Program
DX: K70.31 Alcoholic cirrhosis of liver with ascites (principal)
CPT/HCPCS: 49083; 96365; 96366; P9041

== ENCOUNTER 2024-11-24 07:29 | Outpatient (CLI) | payer BC, SELFPAY ==
--- NOTE | 2024-11-24 07:30 | DI.US.S_ITS ---
PROCEDURE: US ABDOMEN LIMITED INDICATIONS: ASCITES TECHNIQUE: Real-time focused scanning was performed of the abdomen, with image documentation. COMPARISON: [facility], , US PARACENTESIS W/ALBUMIN, 11/10/2024, 9:52. FINDINGS: Limited 4 quadrant views of the abdomen did not reveal sufficient fluid to warrant a paracentesis at this time. IMPRESSION: Insufficient fluid for paracentesis. The patient will follow-up for a repeat visit in 2 weeks time. Dictated by: Ulysses Rivas M.D. on 11/24/2024 at 13:54 Approved by: Ulysses Rivas M.D. on 11/24/2024 at 13:55
[2024-11-24 08:08] VITALS: BP 127/81; PULSE 61; RESP 17; TEMP 36.6; O2SAT 99
[2024-11-24 08:30] VITALS: BP 125/68; PULSE 57; RESP 17; O2SAT 99
--- NOTE | 2024-11-24 08:45 | PC.NURSE ---
Dr. Rivas assessed patient with US and determined it would not be appropriate to perform scheduled paracentesis. Pt agreed. POC is to return for scheduled para in two weeks and go to ED is needed sooner. Pt agreed. Pt A&Ox4, walks with steady gait, no complaints, NAD.
== END 2024-11-24 08:45 | disposition home or self-care (01) ==
PROVIDERS: PCP Student in an Organized Health Care Education/Training Program; Referring Provider Student in an Organized Health Care Education/Training Program; Visit Provider Student in an Organized Health Care Education/Training Program
DX: K70.31 Alcoholic cirrhosis of liver with ascites (principal)
CPT/HCPCS: 76705

== ENCOUNTER 2024-12-08 07:14 | Outpatient (CLI) | payer BC, SELFPAY ==
[2024-12-08] VITALS (11 sets, daily range): BP systolic 118–136; BP diastolic 61–73; PULSE 57–65; RESP 17; TEMP 36.4; O2SAT 98–99
--- NOTE | 2024-12-08 07:17 | DI.US.S_ITS ---
PROCEDURE: US PARACENTESIS W/ALBUMIN INDICATIONS: ASCITES TECHNIQUE: The indications, alternatives, benefits, risks, and complications of the procedure were explained to the patient. Written informed consent was obtained and placed in the chart. The abdomen and pelvis were examined sonographically, and an appropriate site was chosen for paracentesis. The skin was prepared and draped in the usual sterile fashion, and 1% lidocaine was infiltrated from the skin down through the peritoneal surface. A 19-gauge catheter-covered needle was then introduced into the peritoneal space, the catheter was advanced and the needle was withdrawn, and thereafter peritoneal fluid was withdrawn. The catheter was then removed and a dressing was applied. The fluid was discarded if the clinician did not order diagnostic testing of the fluid. COMPARISON: [facility], PARACENTESIS W/ALBUMIN, 11/10/2024, 9:52. FINDINGS: Access site: Left lower quadrant Needle: One-Step centesis catheter with introducer needle. Fluid volume and description: 6800 cc clear Fluid sent for diagnostic testing: None Medications: 1% lidocaine for local anaesthesia. Complications: None. IMPRESSION: Successful ultrasound-guided paracentesis. Dictated by: Mary Lou Gonzalez M.D. on 12/08/2024 at 15:53 Approved by: Mary Lou Gonzalez M.D. on 12/08/2024 at 15:53
[2024-12-08] MEDS: ALBUMIN HUMAN 50 GM/200 ML VIAL IV (09:18)
== END 2024-12-08 11:18 | disposition home or self-care (01) ==
PROVIDERS: PCP Student in an Organized Health Care Education/Training Program; Referring Provider Student in an Organized Health Care Education/Training Program; Visit Provider Student in an Organized Health Care Education/Training Program
DX: K70.31 Alcoholic cirrhosis of liver with ascites (principal)
CPT/HCPCS: 49083; 96365; 96366; P9041

== ENCOUNTER → 2025-01-01 14:39 | Outpatient (CLI) | payer BC, SELFPAY ==
[2025-01-01 19:28] LABS: Add Manual Diff / Slide Review NO; Basophils Absolute Auto 0 /uL (0-100); Basophils Percent Auto 0.8 % (0-2); Eosinophils Absolute Auto 100 /uL (0-450); Eosinophils Percent Auto 1.7 % (2-4); Hematocrit 31.5 % (41-53); Hemoglobin 10.4 g/dL (13.5-17.5); Lymphocytes Absolute Auto 1200 /uL (1100-4500); Lymphocytes Percent Auto 30.5 % (25-40); Mean Corpuscular HGB Conc 33.1 % (30-36); Mean Corpuscular Hemoglobin 26.3 PG (26-34); Mean Corpuscular Volume 79.4 fL (80-100); Monocytes Absolute Auto 500 /uL (0-900); Monocytes Percent Auto 13.8 % (3-14); Neutrophils Absolute Auto 2100 /uL (1500-7000); Neutrophils Percent Auto 53.2 % (50-75); Platelet Count 241 X10^3/uL (150-400); Red Blood Cell Count 3.97 X10^6/uL (4.5-5.9); Red Cell Distribution Width 16.7 % (11.6-14.8); White Blood Cell Count 3.9 X10^3/uL (4.5-11.0)
[2025-01-01 19:34] LABS: Alanine Aminotransferase 18 IU/L (<50); Albumin 3.7 g/dL (3.5-5.0); Albumin Globulin Ratio 1.1 (1.0-2.8); Alkaline Phosphatase 185 U/L (38-126); Aspartate Aminotransferase 74 IU/L (17-59); BUN Creatinine Ratio 11.6 (6-22); Bilirubin Total 1.3 mg/dL (0.2-1.3); Blood Urea Nitrogen 13 mg/dL (9-20); Calcium 9.4 mg/dL (8.4-10.2); Carbon Dioxide 28 mmol/L (22-32); Chloride 101 mmol/L (98-107); Estimated Glomerular Filt Rate > 60 mL/min (>60); Globulin 3.3 g/dL (1.7-4.1); Glucose 141 mg/dL (80-110); HEMOLYSIS 19 (0-50); Sodium 137 mmol/L (137-145)
[2025-01-02 07:45] LABS: Potassium 2.6 mmol/L (3.4-5.1)
== END ==
PROVIDERS: PCP Student in an Organized Health Care Education/Training Program; Visit Provider Student in an Organized Health Care Education/Training Program
DX: K70.31 Alcoholic cirrhosis of liver with ascites (principal)
CPT/HCPCS: 80053; 85025

== ENCOUNTER → 2025-01-06 14:39 | Outpatient (CLI) | payer BC, SELFPAY ==
[2025-01-06 19:00] LABS: Add Manual Diff / Slide Review NO; Basophils Absolute Auto 0 /uL (0-100); Eosinophils Absolute Auto 100 /uL (0-450); Eosinophils Percent Auto 1.5 % (2-4); Hematocrit 31.6 % (41-53); Hemoglobin 10.5 g/dL (13.5-17.5); Lymphocytes Absolute Auto 1500 /uL (1100-4500); Lymphocytes Percent Auto 31.7 % (25-40); Mean Corpuscular HGB Conc 33.2 % (30-36); Mean Corpuscular Hemoglobin 26.4 PG (26-34); Mean Corpuscular Volume 79.7 fL (80-100); Monocytes Absolute Auto 700 /uL (0-900); Monocytes Percent Auto 15.3 % (3-14); Neutrophils Absolute Auto 2400 /uL (1500-7000); Neutrophils Percent Auto 50.5 % (50-75); Platelet Count 252 X10^3/uL (150-400); Red Blood Cell Count 3.96 X10^6/uL (4.5-5.9); Red Cell Distribution Width 16.4 % (11.6-14.8); White Blood Cell Count 4.8 X10^3/uL (4.5-11.0)
[2025-01-06 19:09] LABS: Alanine Aminotransferase 19 IU/L (<50); Albumin 3.7 g/dL (3.5-5.0); Albumin Globulin Ratio 1.1 (1.0-2.8); Alkaline Phosphatase 181 U/L (38-126); Aspartate Aminotransferase 85 IU/L (17-59); BUN Creatinine Ratio 14.3 (6-22); Bilirubin Total 1.4 mg/dL (0.2-1.3); Blood Urea Nitrogen 16 mg/dL (9-20); Calcium 9.2 mg/dL (8.4-10.2); Carbon Dioxide 27 mmol/L (22-32); Chloride 100 mmol/L (98-107); Estimated Glomerular Filt Rate > 60 mL/min (>60); Globulin 3.5 g/dL (1.7-4.1); Glucose 151 mg/dL (80-110); HEMOLYSIS 17 (0-50); Potassium 2.8 mmol/L (3.4-5.1); Sodium 136 mmol/L (137-145); Total Protein 7.2 g/dL (6.3-8.2)
[2025-01-06 19:21] LABS: INR 1.9 (0.9-1.3); Prothrombin Time 21.6 SECONDS (9.4-12.5)
== END ==
PROVIDERS: PCP Student in an Organized Health Care Education/Training Program; Visit Provider Student in an Organized Health Care Education/Training Program
DX: K70.31 Alcoholic cirrhosis of liver with ascites (principal)
CPT/HCPCS: 80053; 85025; 85610

== ENCOUNTER 2025-01-12 07:26 | Outpatient (CLI) | payer BC, SELFPAY ==
--- NOTE | 2025-01-12 07:28 | DI.US.S_ITS ---
PROCEDURE: US PARACENTESIS W/ALBUMIN INDICATIONS: ASCITES TECHNIQUE: The indications, alternatives, benefits, risks, and complications of the procedure were explained to the patient. Written informed consent was obtained and placed in the chart. The abdomen and pelvis were examined sonographically, and an appropriate site was chosen for paracentesis. The skin was prepared and draped in the usual sterile fashion, and 1% lidocaine was infiltrated from the skin down through the peritoneal surface. A 19-gauge catheter-covered needle was then introduced into the peritoneal space, the catheter was advanced and the needle was withdrawn, and thereafter peritoneal fluid was withdrawn. The catheter was then removed and a dressing was applied. The fluid was discarded if the clinician did not order diagnostic testing of the fluid. COMPARISON: [facility], PARACENTESIS W/ALBUMIN, 12/08/2024, 8:33. [facility], PARACENTESIS W/ALBUMIN, 11/10/2024, 9:52. FINDINGS: Access site: Right lower quadrant Needle: One-Step centesis catheter with introducer needle. Fluid volume and description: 6.5 L clear yellow fluid Fluid sent for diagnostic testing: Not requested Medications: 1% lidocaine for local anaesthesia. Complications: None. IMPRESSION: Successful ultrasound-guided paracentesis. Approved by: German Almendarez M.D. on 01/12/2025 at 12:17
[2025-01-12 07:55] VITALS: BP 146/72; PULSE 60; RESP 14; TEMP 36.6; O2SAT 97
[2025-01-12] MEDS: ALBUMIN HUMAN 50 GM/200 ML VIAL IV (09:10)
== END 2025-01-12 11:00 | disposition home or self-care (01) ==
LOC: US 07:27
PROVIDERS: Referring Provider Student in an Organized Health Care Education/Training Program; Visit Provider Student in an Organized Health Care Education/Training Program
DX: K70.31 Alcoholic cirrhosis of liver with ascites (principal)
CPT/HCPCS: 49083; 96365; 96366; P9041

== ENCOUNTER → 2025-01-29 14:12 | Outpatient (CLI) | payer BC, SELFPAY ==
[2025-01-29 19:18] LABS: INR 1.7 (0.9-1.3); Prothrombin Time 19.3 SECONDS (9.4-12.5)
[2025-01-29 19:36] LABS: Add Manual Diff / Slide Review NO; Basophils Absolute Auto 0 /uL (0-100); Basophils Percent Auto 0.8 % (0-2); Eosinophils Absolute Auto 200 /uL (0-450); Eosinophils Percent Auto 3.8 % (2-4); Hematocrit 32.3 % (41-53); Hemoglobin 10.5 g/dL (13.5-17.5); Lymphocytes Absolute Auto 1200 /uL (1100-4500); Lymphocytes Percent Auto 25.9 % (25-40); Mean Corpuscular HGB Conc 32.5 % (30-36); Mean Corpuscular Hemoglobin 25.8 PG (26-34); Mean Corpuscular Volume 79.4 fL (80-100); Monocytes Absolute Auto 700 /uL (0-900); Monocytes Percent Auto 15.2 % (3-14); Neutrophils Absolute Auto 2500 /uL (1500-7000); Neutrophils Percent Auto 54.3 % (50-75); Platelet Count 236 X10^3/uL (150-400); Red Blood Cell Count 4.06 X10^6/uL (4.5-5.9); Red Cell Distribution Width 16.8 % (11.6-14.8); White Blood Cell Count 4.7 X10^3/uL (4.5-11.0)
[2025-01-29 19:50] LABS: Alanine Aminotransferase 18 IU/L (<50); Albumin 3.8 g/dL (3.5-5.0); Albumin Globulin Ratio 1.2 (1.0-2.8); Alkaline Phosphatase 263 U/L (38-126); Aspartate Aminotransferase 42 IU/L (17-59); BUN Creatinine Ratio 16.8 (6-22); Bilirubin Total 0.9 mg/dL (0.2-1.3); Bilirubin Unconjugated 0.4 mg/dL (0.0-1.1); Blood Urea Nitrogen 20 mg/dL (9-20); Calcium 9.5 mg/dL (8.4-10.2); Carbon Dioxide 25 mmol/L (22-32); Chloride 101 mmol/L (98-107); Estimated Glomerular Filt Rate > 60 mL/min (>60); Globulin 3.2 g/dL (1.7-4.1); Glucose 138 mg/dL (70-99); HEMOLYSIS < 15 (0-50); Potassium 4.4 mmol/L (3.4-5.1); Sodium 133 mmol/L (137-145)
== END ==
PROVIDERS: PCP Student in an Organized Health Care Education/Training Program; Visit Provider Student in an Organized Health Care Education/Training Program
DX: K70.31 Alcoholic cirrhosis of liver with ascites (principal); E87.6 Hypokalemia
CPT/HCPCS: 80048; 80076; 85025; 85610

== ENCOUNTER 2025-02-11 11:30 | Outpatient (CLI) | payer BC, SELFPAY ==
--- NOTE | 2025-02-11 11:31 | DI.US.S_ITS ---
PROCEDURE: US PARACENTESIS W/ALBUMIN INDICATIONS: ALCOHOLIC CIRROSIS OF LIVER W/ASCITES TECHNIQUE: The indications, alternatives, benefits, risks, and complications of the procedure were explained to the patient. Written informed consent was obtained and placed in the chart. The abdomen and pelvis were examined sonographically, and an appropriate site was chosen for paracentesis. The skin was prepared and draped in the usual sterile fashion, and 1% lidocaine was infiltrated from the skin down through the peritoneal surface. A 19-gauge catheter-covered needle was then introduced into the peritoneal space, the catheter was advanced and the needle was withdrawn, and thereafter peritoneal fluid was withdrawn. The catheter was then removed and a dressing was applied. The fluid was discarded if the clinician did not order diagnostic testing of the fluid. COMPARISON: [facility], , PARACENTESIS W/ALBUMIN, 01/12/2025, 8:15. FINDINGS: Access site: Left lower quadrant Needle: One-Step centesis catheter with introducer needle. Fluid volume and description: 2.9 L of clear, yellow fluid Fluid sent for diagnostic testing: Negative Medications: 1% lidocaine for local anaesthesia. Complications: None. IMPRESSION: Successful ultrasound-guided paracentesis. Dictated by: Jose Sauceda M.D. on 02/11/2025 at 14:56 Approved by: Jose Sauceda M.D. on 02/11/2025 at 14:57
[2025-02-11 12:24] VITALS: BP 164/84; PULSE 56; RESP 16; TEMP 36.7; O2SAT 98
--- NOTE | 2025-02-11 12:26 | PC.NURSE ---
12:08 noted on arrival patient has a hernia for which he is being followed and wears an abdominal brace. States he is painfree and feeling well.
[2025-02-11 12:42] VITALS: BP 144/79; PULSE 60; RESP 16; O2SAT 100
[2025-02-11 12:48] VITALS: BP 120/70; PULSE 61; RESP 16; O2SAT 100
[2025-02-11 13:03] VITALS: BP 130/80; PULSE 62; RESP 16; O2SAT 99
== END 2025-02-11 13:14 | disposition home or self-care (01) ==
PROVIDERS: PCP Student in an Organized Health Care Education/Training Program; Referring Provider Student in an Organized Health Care Education/Training Program; Visit Provider Student in an Organized Health Care Education/Training Program
DX: K70.31 Alcoholic cirrhosis of liver with ascites (principal)
CPT/HCPCS: 49083

== ENCOUNTER 2025-04-08 11:22 | Outpatient (CLI) | payer BC, SELFPAY ==
--- NOTE | 2025-04-08 11:27 | DI.US.S_ITS ---
PROCEDURE: US PARACENTESIS W/ALBUMIN INDICATIONS: ALCOHOLIC CIRROSIS OF LIVER TECHNIQUE: The indications, alternatives, benefits, risks, and complications of the procedure were explained to the patient. Written informed consent was obtained and placed in the chart. The abdomen and pelvis were examined sonographically, and an appropriate site was chosen for paracentesis. The skin was prepared and draped in the usual sterile fashion, and 1% lidocaine was infiltrated from the skin down through the peritoneal surface. A 19-gauge catheter-covered needle was then introduced into the peritoneal space, the catheter was advanced and the needle was withdrawn, and thereafter peritoneal fluid was withdrawn. The catheter was then removed and a dressing was applied. The fluid was discarded if the clinician did not order diagnostic testing of the fluid. COMPARISON: [facility], , PARACENTESIS W/ALBUMIN, 02/11/2025, 12:29. FINDINGS: Access site: Right lower quadrant of the abdomen Needle: One-Step paracentesis catheter with introducer needle. Fluid volume and description: 1400 mL clear loraine colored fluid Fluid sent for diagnostic testing: No Medications: 1% lidocaine for local anaesthesia. Complications: None. IMPRESSION: Successful ultrasound-guided paracentesis. Dictated by: Mendoza Falcon M.D. on 04/09/2025 at 10:01 Approved by: Mendoza Falcon M.D. on 04/09/2025 at 10:02
[2025-04-08 11:45] VITALS: BP 134/61; BP 134/65; PULSE 64; RESP 16; RESP 17; TEMP 36.2; O2SAT 98
[2025-04-08 12:15] VITALS: BP 130/66; PULSE 60; RESP 17; O2SAT 98
== END 2025-04-08 13:45 | disposition home or self-care (01) ==
PROVIDERS: PCP Student in an Organized Health Care Education/Training Program; Referring Provider Student in an Organized Health Care Education/Training Program; Visit Provider Student in an Organized Health Care Education/Training Program
DX: K70.31 Alcoholic cirrhosis of liver with ascites (principal)
CPT/HCPCS: 49083